=== PATIENT | male | born 1945 | race Caucasian/White ===

== ENCOUNTER → 2017-11-24 | Outpatient (CLI) | payer MEDICARE, OTHER ==
[2014-12-22 15:12] VITALS: BMI 26.3
[~2017-11-24] MED LIST: ARTO15 OD; ASPIRIN; CARB-127 PO; CEP500 PO; CHOL200022 PO; CLON-298 PO; CYAN100T25 PO; DOCU-416 PO; FLONASE; FLUO40CA76 PO; FLUT9.9S; FOLI0.8T29 PO; GABA-1 PO; GABA-490 PO; IOPAMIDOL 76% 100 ML INFUS BTL 100 ML ONE; KLONOPIN; LAM100 PO; LITC450 PO; LOXA5CAP PO; LUMIGAN EYE DROPS; METH5TAB85 PO; MULT-1379 PO; NS 0.9% 150 ML BAG 150 ML ONE; OMEG500C5 PO; OMEG500C7 PO; PYRI100T57 PO; QUET100T29 PO; QUET25TA30 PO; QUET50TA21 PO; RAME8TAB43 PO; TRAZ-133 PO; VITA-200 PO
--- NOTE | 2017-11-24 15:45 | RADIOLOGY IMAGING REPORT ---
FACILITY: [facility] [place] PATIENT NAME: Nicola Kumar : 1945 MR: [id number] V: [id number] EXAM DATE: ORDERING PHYSICIAN: RACHEL DIANA TECHNOLOGIST: Location: [facility] [place] Patient: Nicola Kumar : 1945 Visit/Account:[id number] Date of Sevice: 11/24/2017 ABDOMEN/PELVIS WITH CONTRAST HISTORY: Abnormal LFTs TECHNIQUE: Following administration of IV contrast contiguous axial images acquired through the abdom en/pelvis. Coronal and sagittal reformatting also performed. Dose Lowering Technique One of the following dose optimization techniques was utilized in the performance of this exam: Autom ated exposure control; adjustment of the mA and/or kV according to the patient's size; or use of an i terative reconstruction technique. Specific details can be referenced in the facility's radiology C T exam operational policy. CONTRAST: 100 mL Isovue-370 COMPARISON: None. FINDINGS: Visualized lung bases: Calcified granuloma in the left lower lobe Hepatobiliary: There are numerous irregular hypoattenuating masses throughout the liver ranging in s ize from several millimeters to 6 cm consistent with hepatic metastases. Spleen: There are calcified granulomas within the spleen and several ill-defined geographic areas of decreased attenuation worrisome for additional metastases Adrenals: There Is a 2.6 cm hypoattenuating left adrenal mass Pancreas: There is a large hypoattenuating irregular mass involving the distal half of the body and the tail of the pancreas measuring approximately 7.7 cm in length 4.2 cm in width and 4.5 cm in heigh t. There Appears to been an exophytic component of this mass in direct contact with the superior ant erior aspect of the left kidney . The distal tail portion of the mass appears to be at least partia lly cystic Kidneys ureters or bladder: There are numerous small hypoattenuating lesions seen throughout the kidn eys which could represent cysts. There is no evidence of hydronephrosis. There is a 5 mm calcificat ion in the midpole the right kidney Genitalia: The prostate gland appears extremely heterogeneous. There suggestion of small bilateral hydroceles GI: Negative. Vessels/spaces/nodes: There is an ill-defined left periaortic mass measuring 2 x 1.8 x 2.7 cm likely a lymph node. There is 1.8 x 1.4 x 1.9 cm portacaval lymph node in addition to several other smalle r periportal lymph nodes Bones/soft tissues: There are moderate spondylotic changes lumbar spine. There is a sclerotic densi ty in the right femoral head consistent with a bone island was present on a prior AP view of the pelv is from December 07, 2014 Additional findings: None pertinent. IMPRESSION: Large heterogeneous mass involving the distal body and tail of the pancreas as detailed above extreme ly concerning for pancreatic malignancy. Numerous hepatic metastases 2.6 cm hypoattenuating left adrenal mass Probable splenic metastases Numerous small hypoattenuating lesions throughout the kidneys which could represent cysts although ar e too small to characterize The prostate gland appears extremely heterogeneous and there is suggestion of small bilateral hydroce les Ill-defined periaortic mass measuring 2 x 1.8 x 2.7 cm likely metastatic lymph node 1.8 x 1.4 x 1.9 cm portacaval lymph node also likely metastatic.. Results were called to RACHEL DIANA's nurse Syl at 11/24/2017 3:41 PM. Report Dictated By: Briana Hernandez MD at 11/24/2017 3:25 PM Report E-Signed By: Briana Hernandez MD at 11/24/2017 3:41 PM WSN:[email or web address]
== END ==
LOC: CT 14:30
PROVIDERS: ATTEND Physician Assistant
DX: K86.9 Disease of pancreas, unspecified (principal); C78.89 Secondary malignant neoplasm of other digestive organs; N28.1 Cyst of kidney, acquired; I89.8 Other specified noninfective disorders of lymphatic vessels and lymph nodes
CPT/HCPCS: 74177; Q9967

== ENCOUNTER 2017-12-29 01:28 | Day surgery (SDC) | payer MEDICARE, OTHER ==
[2014-12-22 15:12] VITALS: Ht 170.2 cm; Wt 72.6 kg
[~2017-12-29] VITALS: Ht 170.2 cm; Wt 72.6 kg
[~2017-12-29 01:28] MED LIST changes: -IOPAMIDOL 76% 100 ML INFUS BTL 100 ML ONE; +LORA-630 PO; +MEMA10TA18 PO; -NS 0.9% 150 ML BAG 150 ML ONE; +ZOLP-350 PO
[2017-12-29] MEDS ORDERED: ceFAZolin(*) 2GM/D5W 50ML 50 ML IVPB ONE (06:00)
[2017-12-29 06:09] VITALS: BP 119/71
[2017-12-29] MEDS ORDERED: NORMOSOL R SOLN(*) 1000 ML BAG 1,000 ML IV PRN (06:30)
[2017-12-29] MEDS ORDERED: LIDOCAINE/SOD BICARB 8.4% SYR ID ONE (06:30)
[2017-12-29] MEDS ORDERED: FAMOTIDINE 20 MG TAB PO ONE (06:30)
[2017-12-29] MEDS ORDERED: MIDAZOLAM 2 MG/2 ML VIAL IVP PRN (06:30)
[2017-12-29] MEDS ORDERED: ROPIVACAINE 0.5% 20 ML VIAL ONE (06:43)
[2017-12-29] MEDS ORDERED: NS(*) 0.9% 10 ML VIAL 10 ML ONE (06:43)
[2017-12-29] MEDS ORDERED: HEPARIN SOD LCK FLSH 100 UN/ML ONE ×2 (06:55→07:04)
[2017-12-29] MEDS ORDERED: PROPOFOL EMUL(*) 10MG/ML 20 ML 20 ML ONE (07:16)
[2017-12-29] MEDS ORDERED: fentaNYL CITR 100 MCG/2 ML AMP ONE (07:16)
[2017-12-29] MEDS ORDERED: LIDOCAINE MPF 1% 5 ML VIAL ONE (07:16)
[2017-12-29] MEDS ORDERED: ONDANSETRON 4 MG/2 ML VIAL ONE (07:27)
[2017-12-29] MEDS ORDERED: DEXAMETHASONE SOD 4 MG/ML VIAL ONE (07:27)
[2017-12-29] MEDS ORDERED: ePHEDrine 25 MG/5 ML DISP.SYR IVP ONE (07:28)
[2017-12-29] MEDS ORDERED: DOCU-416 PO (08:17)
[2017-12-29] MEDS ORDERED: HYDR-385 PO (08:17)
--- NOTE | 2017-12-29 08:35 | Short(Outpt) Discharge Summary ---
Discharge Summary Reason for Hosp/Final Diag: (1) Pancreatic cancer Status: Chronic Hospital Course & Plan: Right IJ Power Port placement completed without problems. Departure Discharge to: Home, Self Care Discharge Instructions Home Meds Active Scripts Docusate Sodium (COLACE) 100 Mg Capsule, 1 CAP PO BID, #30 CAP 0 Refills TAKE WITH A FULL GLASS OF WATER Prov:RADHA GIFFORD MD 12/29/17 Hydrocodone Bit/Acetaminophen (HYDROCODON-ACETAMINOPHEN 5-325) 1 Each Tablet, 1- 2 TAB PO Q4H Y for PAIN, #20 TAB 0 Refills Prov:RADHA GIFFORD MD 12/29/17 Reported Medications Zolpidem Tartrate (AMBIEN) 10 Mg Tablet, 1 TAB PO QHS, TAB 12/28/17 Lorazepam (LORAZEPAM) 0.5 Mg Tablet, 1 MG PO BID 12/07/17 Memantine Hcl 10 Mg Tab (NAMENDA 10 MG TAB) 10 Mg Tablet, 10 MG PO BID, TAB 12/07/17 Hypromellose (NATURAL BALANCE TEARS) 15 Ml Drop, 15 ML OD Y for DRY EYES, DROP 02/10/15 Multivits,Th W-Fe,Other Min (THERA-M) 1 Each Tablet, 1 EACH PO DAILY 02/10/15 Gabapentin (NEURONTIN) 300 Mg Capsule, 300 MG PO QHS, CAPSULE 02/10/15 Carbidopa/Levodopa (CARBIDOPA-LEVO 25-100 MG ODT) 1 Each Tab.rapdis, 2 EACH PO unknown TID @ 0730 1130 1630 12/07/14 Lamotrigine (Lamictal) 100 Mg Tab, 300 MG PO QHS, 0 Refills 02/23/09 Discontinued Reported Medications Gabapentin (NEURONTIN) 300 Mg Capsule, 300 MG PO EVERY EVENING, CAPSULE 02/10/15 Diet: Regular Activity: As Tolerated Special Instructions: You may shower starting on 12/31/17, but don't immerse the incisions for 2 weeks. Please let me, or the cancer center, know if the stitch in your neck doesn't fall out in the next 2 weeks so we can remove it for you. You may take 1 or 2 tablets of the hydrocodone/apap up to every 4 hour if you need it for pain control. Avoid NSAIDS (non-steroidal anti-inflammatory drugs: ibuprofen, motrin, aleve, advil, naproxen, naprosyn, etc; tylenol/acetaminophen is OK) for 2 days after surgery. Take the stool softener (colace), 1 capsule twice each day until you're having regular bowel movements and you are no longer taking the pain medication; of course, stop it if you develop diarrhea. Problem Qualifiers (1) Pancreatic cancer: Pancreatic malignancy location: tail of pancreas Qualified Codes: C25.2 - Malignant neoplasm of tail of pancreas RADHA GIFFORD MD December 29, 2017 08:35
[2017-12-29 08:55] VITALS: BP 102/68
[2017-12-29 09:29] VITALS: BP 106/49
[2017-12-29] MEDS ORDERED: TRAM-420 PO (09:37)
[2017-12-29 09:58] VITALS: BP 106/69
[2017-12-29 10:00] VITALS: BP 92/59
--- NOTE | 2017-12-29 10:14 | RADIOLOGY IMAGING REPORT ---
FACILITY: [facility] PATIENT NAME: Nicola Kumar : 1945 MR: [id number] V: [id number] EXAM DATE: ORDERING PHYSICIAN: RADHA GIFFORD TECHNOLOGIST: Location: [facility] Patient: Nicola Kumar : 1945 Visit/Account:[id number] Date of Sevice: 12/29/2017 Exam type: CHEST SINGLE AP History: Right IJ Power Port placement Comparison: December 07, 2014 Findings: The lungs are free of acute effusions, infiltrates or edema. Cardiac silhouette is normal in size. The trachea is midline. The implanted right IJ port distal tip projects over the superior vena cava. No pneumothorax is seen.. IMPRESSION: Right IJ port appears in good position with the distal tip projecting over the superior vena cava. N o evidence of pneumothorax Report Dictated By: Briana Hernandez MD at 12/29/2017 9:40 AM Report E-Signed By: Briana Hernandez MD at 12/29/2017 10:09 AM WSN:[email or web address]
--- NOTE | 2017-12-29 11:36 | RADIOLOGY IMAGING REPORT ---
FACILITY: [facility] - [place] [place] PATIENT NAME: Nicola Kumar : 1945 MR: [id number] V: [id number] EXAM DATE: ORDERING PHYSICIAN: RADHA GIFFORD TECHNOLOGIST: Location: [facility] [place] Patient: Nicola Kumar : 1945 Visit/Account:[id number] Date of Sevice: 12/29/2017 Exam type: C-ARM FLUORO PORT/CATH History: PORT PLACEMENT Comparison: None. Findings: Three portable intraoperative C-arm spot views of the upper chest demonstrate placement of a implante d right IJ port with the distal tip resting over the superior vena cava. The total fluoroscopy time was 18.6 seconds. The cumulative continuous possibly dose was 0.27291 mGray per meter squared IMPRESSION: 1. As above Report Dictated By: Briana Hernandez MD at 12/29/2017 11:17 AM Report E-Signed By: Briana Hernandez MD at 12/29/2017 11:31 AM WSN:[email or web address]
--- NOTE | 2018-01-04 19:42 | Post Operative Progress Note ---
Post Operative Progress Note Date: January 04, 2018 Time: 19:37 Surgeon: Kadi Dictation number: [id number] Anesthesia: LMA by Dr. Saenz Pre-Op Diagnosis: Pancreatic Cancer Post-Op Diagnosis: HERMILO Findings: None Procedure(s): Right IJ Power Port placement Specimen Removed:(May be N/A): None Complications: None Fluids: See anesthesia record Estimated Blood Loss: Minimal Date OP Note Dictated: January 04, 2018 Time OP Note Dictated: 19:38 RADHA GIFFORD MD January 04, 2018 19:42
--- NOTE | 2018-01-04 21:46 | OPERATIVE REPORT 1 ---
EVENT DATE: December 29, 2017 SURGEON: John Wallis MD ANESTHESIOLOGIST: Tommy Saenz MD ANESTHESIA: LMA. PREOPERATIVE DIAGNOSIS Pancreatic cancer. POSTOPERATIVE DIAGNOSIS Pancreatic cancer. PROCEDURE PERFORMED Right internal jugular PowerPort placement. COMPLICATIONS None. CONDITION Stable. BLOOD LOSS Minimal. INDICATIONS This is a 72-year-old gentleman who, unfortunately, has been recently found to have stage IV pancreatic cancer. He is planning on starting chemotherapy, and I have been asked to place a PowerPort to facilitate this. DESCRIPTION OF PROCEDURE The patient was brought to the operating room and placed supine on the operating table. LMA anesthesia was administered, and his right neck, chest, and shoulder were prepped and draped in a sterile fashion. A timeout was completed. I used the ultrasound to identify the right internal jugular vein. With the patient in Trendelenburg, I used the access needle, and under ultrasound guidance, I accessed the vein in one attempt. I threaded the wire through the needle and removed the needle. I then used the C-arm to confirm that the wire was in the SVC. I then anesthetized the skin in the neck as well as in the right infraclavicular skin. I made a transverse incision in the right infraclavicular skin and dissected through the dermis and subcutaneous fat. I then created a pocket caudad to the incision and made sure this was hemostatic. I then made a stab incision in the neck where the wire went in and then used the tunneler and dragged the catheter in through the subcutaneous tissue into the neck from the pocket in this infraclavicular area. Then with the patient in Trendelenburg, I threaded the dilator and sheath over the wire, used the C-arm to confirm that, again, this was in the SVC. I then removed the dilator and wire, threaded the catheter through the sheath, and removed the sheath. I then pulled the catheter back so the tip was in the SVC just over the right atrium, using the C-arm again to confirm positioning. I then cut the catheter to length, cut the port on the catheter, and locked it into place with a locking cuff. I then sutured the port to the underlying muscle fascia with 3- 0 nylon at the corners. I then took some more C-arm images to confirm good positioning, and there were no kinks or twists in the catheter. I then aspirated blood through the port and catheter and then flushed it with 10 mL of preservative-free, infusible normal saline. It aspirated blood with no problems , and I was able to flush it with no problems. I then flushed it with 5 mL of 100 units/mL of heparinized saline for a total of 500 units of heparin. Again, it flushed with no problems. I then closed the skin on the pocket with interrupted 3-0 Vicryl deep dermal sutures and 4-0 Monocryl subcuticular sutures. I then placed a single 3-0 chromic suture in the stab incision in the neck. I then cleaned and dried the skin, and Steri-Strips were applied. He was awakened and LMA removed. He was transported to the recovery room in stable condition having tolerated the procedure without any apparent problems. MIKAL
== END 2017-12-29 08:55 | disposition home or self-care (01) ==
LOC: OR 01:28
PROVIDERS: ATTEND Surgery
DX: C25.9 Malignant neoplasm of pancreas, unspecified (principal)
CPT/HCPCS: 36561; 71045; 77001; A9270; C1788; J1100; J1642; J2001; J2405; J2704; J2795; J3010; J0690

== ENCOUNTER 2018-01-18 10:30 | Outpatient (RCR) | payer MEDICARE, OTHER ==
[2014-12-22 15:12] VITALS: BMI 26.3
--- NOTE | 2018-01-03 13:27 | PT INITIAL EVALUATION ---
MEDICAL DIAGNOSIS: Pancreatic Cancer TREATMENT DIAGNOSIS: Pancreatic Cancer, Parkinsons Disease DATE OF ONSET: 01/03/18 SUBJECTIVE: Nicola is a 72 year-old male presenting to oncology rehabilitation following the recent diagnosis and initiation of treatment for pancreatic cancer. Pt is to start today on a medical oncology regime consisting of Gemcitabine and Abraxane, received weekly for 3 weeks with one week off between , for palliative treatment slowing disease progression and decreasing pain. Pt currently is quite active walking 2-3 miles 4x/week and also participating in recreational lifting at the [facility]. Pt has a history of Parkinson's Disease and has participated in a "[employer]" program for individuals with Parkinson's up until about a month ago when he rolled his ankle (which is now resolved). Pt reports only mild abdominal pain and decreased appetite developing over the last month. Pt also reports occasional shortness of breath with walking which has increased over the past month. Pt's son and are present for education and evaluation from PT. Dietitian is to follow up with pt following PT evaluation. REHAB PROBLEM LIST: Increased Pain Decreased Strength Decreased Function Decreased ADL's PREVIOUS MEDICAL HISTORY: See EMR OCCUPATION: Retired OBJECTIVE: Posture: Pt has B rounded shoulders with increased thoracic kyphosis and forward head. ROM: UE ROM: WFL without pain in all directions B. Strength: LE MMT: Hip: All motions 5/5. Knee: Flexion: B 4+/5, Ext: L 4+/5, R 5/ 5. Ankle: DF: B 5/5, PF: L 4+/5, R 5/5. Sensation: Pt reports no neuropathy at this time. Mobility: ECOG Performance Status: Grade 0 Other Objective Findings: FACT-G: PWB: , SWB: , EWB: , FWB: , Total: 88/108. ASSESSMENT: Nicola presents with signs and symptoms consistent with diagnosis of pancreatic cancer. Physical therapy is indicated for this patient to maintain functional mobility, treat the above listed impairments, and diminish physical side effects of disease progression with both his oncological diagnosis as well as his history with Parkinson's disease. Short Term Goals In 3 weeks pt will be able to independently perform LSVT-BIG exercises at home for management of Parkinson's Disease progression with ongoing oncological intervention for maintenance of functional status. In 3 MO pt will maintain ECOG performance status of 0 for maintenance of functional mobility with ADL's. In 3 MO pt will maintain FACT-G score of 80/108 or better for continued status of physical and functional well-being. In 6 MO pt will maintain FACT-G score of 75/108 or better for continued status of physical and functional well-being. In 6 MO pt will maintain strength as tested by MMT of 4+/5 or greater in all major muscle groups for functional ability to perform ADL's. Patient's Goals Maintain function. PLAN: Patient to be seen for Manual Therapy/STM/MET Strengthening/condition Ice/Heat Range of Motion Spinal Stabilization Ultrasound Stretching Iontophoresis Neuromuscular Re-ed Closed Chain Program Electrical Stim Posture/Body mechanics Gait Trg/Balance Trg Biofeedback Home Exercise Program Mech./Manual Traction Therapeutic Activities Pelvic Floor 1x/Week for 6 MO If you have any questions, comments, or concerns about this report or plan, please contact me at . Thank you, Jacquelyn Hobson, PT, DPT, CLT MTDD
[~2018-01-18 10:30] MED LIST changes: +HYDR-385 PO; +TRAM-420 PO
--- NOTE | 2018-01-25 09:29 | PT PLAN OF CARE ---
Physician: Josr Segundo MD Patient is being seen: 1x/Week Therapist: Jacquelyn Hobson, PT, DPT, CLT Medical Diagnosis: Pancreatic Cancer Treatment Diagnosis: Pancreatic Cancer, Parkinson's Disease Date of Onset: 01/03/18 Date of Initial Evaluation: 01/03/18 Date patient was last seen: 01/18/18 Number of treatments: 3 Number of cancellations/No shows: 0 INTERVENTIONS: Manual Therapy/STM/MET Strengthening/condition Ice/Heat Range of Motion Spinal Stabilization Ultrasound Stretching Iontophoresis Neuromuscular Re-ed Closed Chain Program Electrical Stim Posture/Body mechanics Gait Trg/Balance Trg Biofeedback Home Exercise Program Mech./Manual Traction Therapeutic Activities Pelvic Floor GOALS: In 3 weeks pt will be able to independently perform LSVT-BIG exercises at home for management of Parkinson's Disease progression with ongoing oncological intervention for maintenance of functional status. In 3 MO pt will maintain ECOG performance status of 0 for maintenance of functional mobility with ADL's. In 3 MO pt will maintain FACT-G score of 80/108 or better for continued status of physical and functional well-being. In 6 MO pt will maintain FACT-G score of 75/108 or better for continued status of physical and functional well-being. In 6 MO pt will maintain strength as tested by MMT of 4+/5 or greater in all major muscle groups for functional ability to perform ADL's. PATIENT'S GOAL: Maintain function. Status of Patient's Goals: Discontinued Patient Compliance: Fair Prognosis: Fair Reasons for discharge from therapy: Nicola is to discharge from physical therapy at this time secondary to recent hospital admission with multiple DVT's and PE's. At the time of discharge pt showed improvement with BIG exercises stability and balance. However, with ADL's pt and family noticed decreased energy and activity as well as increased exacerbation of Parkinson's symptoms including micro movements. Pt was inconsistent with performance of HEP, but was hopeful to improve. Upon discharge from the hospital pt is to resume PT services in a home health setting transitioning to an outpatient setting for management of Parkinson's Disease as well as maintenance of strength and function. Posture: Pt has B rounded shoulders with increased thoracic kyphosis and forward head. ROM: UE ROM: WFL without pain in all directions B. Strength: LE MMT: Hip: All motions 5/5. Knee: Flexion: B 4+/5, Ext: L 4+/5, R 5/ 5. Ankle: DF: B 5/5, PF: L 4+/5, R 5/5. Sensation: Pt reports no neuropathy at this time. Mobility: ECOG Performance Status: Grade 0 Other Objective Findings: FACT-G: PWB: , SWB: , EWB: , FWB: , Total: 88/108. If yo have any questions or concerns, please feel free to contact me at . Thank you, Jacquelyn Hobson, PT, DPT, CLT MTDD
== END 2018-01-18 18:00 | disposition home or self-care (01) ==
LOC: PT 10:30
PROVIDERS: ATTEND Internal Medicine
DX: C25.9 Malignant neoplasm of pancreas, unspecified (principal); G20 Parkinson's disease; R06.02 Shortness of breath; R10.9 Unspecified abdominal pain
CPT/HCPCS: 97162

== ENCOUNTER 2018-01-23 16:31 | Inpatient (IN) | payer MEDICARE, OTHER ==
[~2018-01-23] VITALS: Ht 172.7 cm; Wt 72.6 kg
[~2018-01-23 16:31] MED LIST changes: -CARB-71 PO; -GABA-549 PO
--- NOTE | 2018-01-23 16:35 | ER Report ---
History and Physical Time Seen By MD: 16:39 HPI/ROS CHIEF COMPLAINT: Shortness of breath HISTORY OF PRESENT ILLNESS: This is a 72-year-old male who presents to the emergency department for shortness of breath. Patient was sent from the radiology department positive for a DVT. Patient also indicated having shortness of breath subsequently sent to the emergency department for further evaluation. Patient states he's had bilateral lower extremity discomforts for the last roughly 6 weeks which ultimately with the patient in for the bilateral lower extremity ultrasound. Patient states that over the last month he's had some increased shortness breath as well did a home oxygen study which was discovered that his O2 sats at night were low. But has not been started on oxygen. Patient did have increased shortness of breath today was placed on oxygen and is feeling better. Patient does have a history of pancreatic cancer with metastasis to the liver. Patient denies rashes, headaches, visual changes REVIEW OF SYSTEMS: Constitutional: No fever, no chills. Eyes: No discharge. ENT: No sore throat. Cardiovascular: No chest pain, no palpitations. Respiratory: As above. Gastrointestinal: No abdominal pain, no vomiting. Genitourinary: No hematuria. Musculoskeletal: As above. Skin: No rashes. Neurological: No headache. Allergies: Coded Allergies: No Known Drug Allergies (Verified , 01/23/18) Home Meds Reported Medications Zolpidem Tartrate (AMBIEN) 10 Mg Tablet, 1 TAB PO QHS, TAB 12/28/17 Lorazepam (LORAZEPAM) 0.5 Mg Tablet, 1 MG PO BID 12/07/17 Memantine Hcl 10 Mg Tab (NAMENDA 10 MG TAB) 10 Mg Tablet, 10 MG PO BID, TAB 12/07/17 Hypromellose (NATURAL BALANCE TEARS) 15 Ml Drop, 15 ML OD Y for DRY EYES, DROP 02/10/15 Multivits,Th W-Fe,Other Min (THERA-M) 1 Each Tablet, 1 EACH PO DAILY 02/10/15 Gabapentin (NEURONTIN) 300 Mg Capsule, 300 MG PO QHS, CAPSULE 02/10/15 Carbidopa/Levodopa (CARBIDOPA-LEVO 25-100 MG ODT) 1 Each Tab.rapdis, 2 EACH PO unknown TID @ 0730 1130 1630 12/07/14 Lamotrigine (Lamictal) 100 Mg Tab, 300 MG PO QHS, 0 Refills 7/6/09 Discontinued Scripts Tramadol Hcl (TRAMADOL HCL) 50 Mg Tablet, 1-2 TAB PO Q4H Y for PAIN, #20 TAB 0 Refills Prov:RADHA GIFFORD MD 12/29/17 Docusate Sodium (COLACE) 100 Mg Capsule, 1 CAP PO BID, #30 CAP 0 Refills TAKE WITH A FULL GLASS OF WATER Prov:RADHA GIFFORD MD 12/29/17 Past Medical/Surgical History Patient has a past medical and surgical history of Parkinson's, constipation, liver disease, pancreatic cancer metastasized to liver, lower back pain, wears glasses, bleeds easily, knee surgery, bipolar, depression, anxiety, spinal surgery, disc repair, nasal septal surgery, right eye surgery secondary to torn retina, skin cancer removed from the cheeks. Reviewed Nurses Notes: Yes Hx Smoking: No Smoking Status: Never Smoker Exposure to Second Hand Smoke?: No Hx Substance Use Disorder: No Hx Alcohol Use: Yes Constitutional Vital Sign - Last 24 Hours 01/23/18 01/23/18 16:38 16:49 Temp 97.6 Pulse 79 Resp 20 B/P (MAP) 133/83 Pulse Ox 98 O2 Delivery Nasal Cannula O2 Flow Rate 3.0 Physical Exam General Appearance: The patient is alert, has no immediate need for airway protection and no signs of toxicity. Eyes: Pupils equal and round no pallor or injection. Scleral icterus. ENT, Mouth: Mucous membranes are Dry. Respiratory: There are no retractions, lungs are clear to auscultation. Cardiovascular: Regular rate and rhythm, no murmurs, clicks or rubs. Gastrointestinal: Abdomen is soft and non tender, no masses, bowel sounds normal. Neurological: Alert and oriented 4. Moving all extremities. Follows all commands. No focal neuro deficits. Skin: Warm and dry, no rashes. Musculoskeletal: Neck is supple non tender. Extremities are nontender, nonswollen and have full range of motion. DIFFERENTIAL DIAGNOSIS: After history and physical exam differential diagnosis was considered for shortness of breath including but not limited to pulmonary infectious process, COPD, asthma, pulmonary embolus and congestive heart failure. Medical Decision Making Data Points Result Diagram: 01/23/18 1706 01/23/18 1706 Laboratory Hematology Test 01/23/18 17:06 Red Blood Count 3.62 M/uL (4.00-5.60) Mean Corpuscular Volume 92.1 fL (80.0-96.0) Mean Corpuscular Hemoglobin 32.4 pg (26.0-33.0) Mean Corpuscular Hemoglobin Concent 35.2 g/dL (32.0-36.0) Red Cell Distribution Width 16.9 % (11.5-14.5) Mean Platelet Volume 8.4 fL (7.2-11.1) Neutrophils (%) (Auto) % (39.4-72.5) Lymphocytes (%) (Auto) % (17.6-49.6) Monocytes (%) (Auto) % (4.1-12.4) Eosinophils (%) (Auto) % (0.4-6.7) Basophils (%) (Auto) % (0.3-1.4) Nucleated RBC Relative Count (auto) /100WBC Neutrophils # (Auto) K/uL (2.0-7.4) Lymphocytes # (Auto) K/uL (1.3-3.6) Monocytes # (Auto) K/uL (0.3-1.0) Eosinophils # (Auto) K/uL (0.0-0.5) Basophils # (Auto) K/uL (0.0-0.1) Nucleated RBC Absolute Count (auto) K/uL Neutrophils % (Manual) 50 % (39.4-72.5) Band Neutrophils % 8 % Lymphocytes % (Manual) 27 % (17.6-49.6) Monocytes % (Manual) 9 % (4.1-12.4) Eosinophils % (Manual) 1 % (0.4-6.7) Basophils % (Manual) 1 % (0.3-1.4) Metamyelocytes % 3 % Myelocytes % 1 % Nucleated Red Blood Cells 1 Peripheral Blood Smear Yes Y/N Sodium Level 136 mmol/L (137-145) Potassium Level 4.1 mmol/L (3.5-5.0) Chloride Level 104 mmol/L (98-107) Carbon Dioxide Level 20 mmol/L (22-30) Blood Urea Nitrogen 32 mg/dl (9-21) Creatinine 1.10 mg/dl (0.66-1.25) Glomerular Filtration Rate Calc > 60.0 Random Glucose 86 mg/dl (75-110) Calcium Level 10.3 mg/dl (8.4-10.2) Total Bilirubin 6.5 mg/dl (0.2-1.3) Aspartate Amino Transf (AST/SGOT) 71 U/L (0-35) Alanine Aminotransferase (ALT/SGPT) 22 U/L (0-56) Alkaline Phosphatase 572 U/L (0-126) Troponin I 0.027 ng/ml B-Type Natriuretic Peptide 268 pg/ml (0-100) Total Protein 6.3 gm/dl (6.3-8.2) Albumin 3.0 g/dl (3.5-5.0) Chemistry Test 01/23/18 17:06 White Blood Count 7.2 k/uL (4.5-11.0) Red Blood Count 3.62 M/uL (4.00-5.60) Hemoglobin 11.7 g/dL (14.0-18.0) Hematocrit 33.3 % (42.0-52.0) Mean Corpuscular Volume 92.1 fL (80.0-96.0) Mean Corpuscular Hemoglobin 32.4 pg (26.0-33.0) Mean Corpuscular Hemoglobin Concent 35.2 g/dL (32.0-36.0) Red Cell Distribution Width 16.9 % (11.5-14.5) Platelet Count 112 K/uL (150-450) Mean Platelet Volume 8.4 fL (7.2-11.1) Neutrophils (%) (Auto) % (39.4-72.5) Lymphocytes (%) (Auto) % (17.6-49.6) Monocytes (%) (Auto) % (4.1-12.4) Eosinophils (%) (Auto) % (0.4-6.7) Basophils (%) (Auto) % (0.3-1.4) Nucleated RBC Relative Count (auto) /100WBC Neutrophils # (Auto) K/uL (2.0-7.4) Lymphocytes # (Auto) K/uL (1.3-3.6) Monocytes # (Auto) K/uL (0.3-1.0) Eosinophils # (Auto) K/uL (0.0-0.5) Basophils # (Auto) K/uL (0.0-0.1) Nucleated RBC Absolute Count (auto) K/uL Neutrophils % (Manual) 50 % (39.4-72.5) Band Neutrophils % 8 % Lymphocytes % (Manual) 27 % (17.6-49.6) Monocytes % (Manual) 9 % (4.1-12.4) Eosinophils % (Manual) 1 % (0.4-6.7) Basophils % (Manual) 1 % (0.3-1.4) Metamyelocytes % 3 % Myelocytes % 1 % Nucleated Red Blood Cells 1 Peripheral Blood Smear Yes Y/N Glomerular Filtration Rate Calc > 60.0 Calcium Level 10.3 mg/dl (8.4-10.2) Total Bilirubin 6.5 mg/dl (0.2-1.3) Aspartate Amino Transf (AST/SGOT) 71 U/L (0-35) Alanine Aminotransferase (ALT/SGPT) 22 U/L (0-56) Alkaline Phosphatase 572 U/L (0-126) Troponin I 0.027 ng/ml B-Type Natriuretic Peptide 268 pg/ml (0-100) Total Protein 6.3 gm/dl (6.3-8.2) Albumin 3.0 g/dl (3.5-5.0) EKG/Imaging EKG Interpretation 12 lead EKG: Tylenol EKG 1649. Rhythm: Normal sinus rhythm, 77 bpm. [place]: normal QRS: normal ST segments: T-wave inversion in V1 and V2 V3. There are changes from the 12/07/2014 EKG, no T wave inversion. Imaging Exam type: VENOUS DOPP LOWER BILAT EXTREM History: Stage IV pancreatic cancer with metastases undergoing chemotherapy ankle swelling Comparison: None. Findings: There is thrombus in the left external iliac vein, left common femoral vein, left superficial femoral vein left and popliteal vein. The IVC appeared to be patent. The left posterior tibial vein peroneal vein and anterior tibial vein appeared patent and compressible. The right common femoral vein greater saphenous vein superficial femoral vein and proximal right popliteal vein appear compressible. The distal right popliteal vein with noncompressible containing thrombus. Right posterior tibial vein peroneal vein were noncompressible. The right anterior tibial vein was compressible IMPRESSION: 1. Extensive DVT is identified in the left external iliac vein through the left popliteal vein from the distal right popliteal vein into the right posterior tibial and peroneal veins. Yesenia Santiago was notified of these findings by telephone by the technologist at the time of the examination. Report Dictated By: Briana Hernandez MD at 01/23/2018 4:42 PM Report E-Signed By: Briana Hernandez MD at 01/23/2018 4:48 PM WSN:[email or web address] Location: [facility] [place] Patient: Nicola Kumar : 1945 Visit/Account:[id number] Date of Sevice: 01/23/2018 EXAMINATION: CT CHEST PULMONARY ANGIOGRAM COMPARISON: Chest x-ray 12/29/2017. CT abdomen and pelvis 11/24/2017. HISTORY: Dx today with bilat DVTs, short of breath, eval for PE PROCEDURE: Pulmonary arterial phase imaging of the chest with 75 mL intravenous Isovue 370. Reconstruction of the source data set includes multiplanar 2D in the sagittal and coronal planes, and 3D reconstructed coronal slab MIP series. One of the following dose optimization techniques was utilized in the performance of this exam: Automated exposure control; adjustment of the mA and/ or kV according to the patient's size; or use of an iterative reconstruction technique. Specific details can be referenced in the facility's radiology CT exam operational policy. FINDINGS: Pulmonary vasculature: There is good contrast opacification of the pulmonary arterial system. Small amount of nonocclusive distal segmental and subsegmental pulmonary emboli in the right middle and right lower lobes. Left lower lobe posterior basal segmental and subsegmental occlusive embolus. Minimal nonocclusive distal segmental embolus in the left upper lobe. Main pulmonary artery size is within normal limits. Cardiac and mediastinum: Cardiac chambers are unremarkable; RV: LV ratio is within normal limits. Infusion port. No pericardial effusion. No thoracic aortic aneurysm. Lungs and pleura: No evidence of pulmonary infarct. No consolidation or nodule. No pneumothorax, edema, or effusion. Airways: Negative. Upper abdomen: Hepatic metastatic disease is incompletely evaluated due to the phase of enhancement. The known pancreatic tail mass is not included on this study. Osseous structures: Negative. IMPRESSION: 1. Small amount of bilateral pulmonary emboli. No pulmonary infarct are evidence of acute right ventricular strain. 2. Hepatic metastatic disease. Results were discussed with Janie Reno at 01/23/2018 6:43 PM. Report Dictated By: Olivier Cummings MD at 01/23/2018 6:34 PM Report E-Signed By: Olivier Cummings MD at 01/23/2018 6:43 PM WSN:[id number] ED Course/Re-evaluation Clinical Indication for ER IV: Hydration, IV Access ED Course The patient was a minute to a room. A history physical were obtained. Differential diagnoses were considered. The patient's port was accessed. A CBC, CMP, Showing alk phosphatase 572, negative troponin, BNP 268 otherwise CBC and chemistry unremarkable.The venous Doppler showing extensive DVT in the left external iliac vein through the left popliteal vein from the distal right popliteal vein into the right posterior tibial and peroneal veins. CT angiography of the chest showing small amount of bilateral pulmonary emboli no pulmonary infarct. I did review these results with the patient and the family at the bedside and given the extensive clot burden in the lower extremities as well as the pulmonary emboli I did feel that it would be the patient's best interest to consider an admission to the hospital. Patient was agreeable to this. I did speak with Dr. Luna who accepted the patient in the Hospital services. Patient will be admitted to the medical unit and anticoagulated. The patient had no questions or concerns at the time of admission. 01/23/2018 6:50:06 pm I did a room air trial, the patient's oxygen did dip from the mid to upper 90s on 3 L nasal cannula to 85% on room air. 01/23/2018 7:08:04 pm I did speak with Dr. Luna regarding the patient's case, he has accepted the patient into the hospitalist services patient will be admitted for pulmonary emboli, DVT, shortness of breath, and pancreatic cancer with metastatic disease to the liver. Decision to Disposition Date: Jan 23, 2018 Decision to Disposition Time: 19:08 Depart Departure Latest Vital Signs Vital Signs Date Time Temp Pulse Resp B/P (MAP) Pulse Ox O2 Delivery O2 Flow Rate FiO2 01/23/18 16:49 3.0 01/23/18 16:38 97.6 79 20 133/83 98 Nasal Cannula Impression: Primary Impression: DVT (deep venous thrombosis) Additional Impressions: PE (pulmonary thromboembolism) Hypoxia Pancreatic cancer metastasized to liver Condition: Improved Disposition: Admitted from ER Problem Qualifiers Primary Impression: DVT (deep venous thrombosis) DVT location: lower extremity Affected thrombotic vein of extremity: femoral Chronicity: acute Laterality: bilateral Qualified Codes: I82.413 - Acute embolism and thrombosis of femoral vein, bilateral ANGEL BARNEYP- Jan 23, 2018 16:35
[2018-01-23] MEDS ORDERED: NS(*) 0.9% 500 ML BAG 500 ML IV ONE (16:40)
--- NOTE | 2018-01-23 16:55 | EKG ---
FACILITY: [facility] PATIENT NAME: CRISTOFER HAINES : [id number] MR: [id number] V: [id number] EXAM DATE: ORDERING PHYSICIAN: ANGEL BARNEY TECHNOLOGIST: JUDAH Test Reason : SOB Blood Pressure : / mmHG Vent. Rate : 077 BPM Atrial Rate : 077 BPM P-R Int : 166 ms QRS Dur : 110 ms QT Int : 394 ms P-R-T Axes : 014 -50 044 degrees QTc Int : 445 ms Normal sinus rhythm Left anterior fascicular block ST and T wave abnormality, consider anterior ischemia Abnormal ECG When compared with ECG of 07-DEC-2014 15:37, premature atrial complexes are no longer present ST now depressed in Anterior leads T wave inversion now evident in Anterior leads Confirmed by RADHA CHAMPAGNE ([id number]) on 01/24/2018 6:30:13 AM Referred By: JANE Confirmed By:RADHA CHAMPAGNE
[2018-01-23] MEDS ORDERED: IOPAMIDOL 76% 75 ML INFUS BTL 75 ML ONE (17:06)
[2018-01-23] MEDS ORDERED: NS 0.9% 25 ML BAG 50 ML ONE (17:06)
[2018-01-23 17:30] LABS: PLATELET COUNT, AUTOMATED 112 K/uL (150-450)
--- NOTE | 2018-01-23 18:47 | RADIOLOGY IMAGING REPORT ---
FACILITY: [facility] PATIENT NAME: Nicola Kumar : 1945 MR: [id number] V: [id number] EXAM DATE: ORDERING PHYSICIAN: ANGEL BARNEY TECHNOLOGIST: Location: [facility] Patient: Nicola Kumar : 1945 Visit/Account:[id number] Date of Sevice: 01/23/2018 EXAMINATION: CT CHEST PULMONARY ANGIOGRAM COMPARISON: Chest x-ray 12/29/2017. CT abdomen and pelvis 11/24/2017. HISTORY: Dx today with bilat DVTs, short of breath, eval for PE PROCEDURE: Pulmonary arterial phase imaging of the chest with 75 mL intravenous Isovue 370. Reconstru ction of the source data set includes multiplanar 2D in the sagittal and coronal planes, and 3D recon structed coronal slab MIP series. One of the following dose optimization techniques was utilized in the performance of this exam: Autom ated exposure control; adjustment of the mA and/or kV according to the patient's size; or use of an i terative reconstruction technique. Specific details can be referenced in the facility's radiology C T exam operational policy. FINDINGS: Pulmonary vasculature: There is good contrast opacification of the pulmonary arterial system. Small amount of nonocclusive distal segmental and subsegmental pulmonary emboli in the right middle and rig ht lower lobes. Left lower lobe posterior basal segmental and subsegmental occlusive embolus. Minimal nonocclusive distal segmental embolus in the left upper lobe. Main pulmonary artery size is within n ormal limits. Cardiac and mediastinum: Cardiac chambers are unremarkable; RV: LV ratio is within normal limits. Inf usion port. No pericardial effusion. No thoracic aortic aneurysm. Lungs and pleura: No evidence of pulmonary infarct. No consolidation or nodule. No pneumothorax, john a, or effusion. Airways: Negative. Upper abdomen: Hepatic metastatic disease is incompletely evaluated due to the phase of enhancement. The known pancreatic tail mass is not included on this study. Osseous structures: Negative. IMPRESSION: 1. Small amount of bilateral pulmonary emboli. No pulmonary infarct are evidence of acute right ventr icular strain. 2. Hepatic metastatic disease. Results were discussed with Janie Reno at 01/23/2018 6:43 PM. Report Dictated By: Olivier Cummnigs MD at 01/23/2018 6:34 PM Report E-Signed By: Olivier Cummings MD at 01/23/2018 6:43 PM WSN:[id number]
[2018-01-23 21:08] VITALS: BP 154/81
[2018-01-23] MEDS ORDERED: INFLUENZA VIRUS VAC 0.5 ML SYR IM ONLY ONE (21:20)
[2018-01-23] MEDS ORDERED: HYPROMELLOSE 0.4% LUB 15ML BTL OD PRN (21:20)
[2018-01-23] MEDS ORDERED: APAP/HYDROCODONE 325/5 TAB PO PRN (21:20)
--- NOTE | 2018-01-23 21:33 | History & Physical ---
History of Present Illness Chief Complaint Shortness of breath and leg pain History of Present Illness This patient presented to the emergency room after being found to have bilateral lower extremity DVT's as part of an outpatient work up. He also complained of shortness of breath over the past month. History Problems: (1) Pancreatic cancer metastasized to liver Status: Chronic (2) Depression Status: Chronic (3) Bipolar disorder with severe depression Status: Chronic Home Meds Reported Medications Zolpidem Tartrate (AMBIEN) 10 Mg Tablet, 1 TAB PO QHS, TAB 12/28/17 Lorazepam (LORAZEPAM) 0.5 Mg Tablet, 1 MG PO BID 12/07/17 Memantine Hcl 10 Mg Tab (NAMENDA 10 MG TAB) 10 Mg Tablet, 10 MG PO BID, TAB 12/07/17 Hypromellose (NATURAL BALANCE TEARS) 15 Ml Drop, 15 ML OD Y for DRY EYES, DROP 02/10/15 Multivits,Th W-Fe,Other Min (THERA-M) 1 Each Tablet, 1 EACH PO DAILY 02/10/15 Gabapentin (NEURONTIN) 300 Mg Capsule, 300 MG PO QHS, CAPSULE 02/10/15 Carbidopa/Levodopa (CARBIDOPA-LEVO 25-100 MG ODT) 1 Each Tab.rapdis, 2 EACH PO unknown TID @ 0730 1130 1630 12/07/14 Lamotrigine (Lamictal) 100 Mg Tab, 300 MG PO QHS, 0 Refills 02/23/09 Discontinued Scripts Tramadol Hcl (TRAMADOL HCL) 50 Mg Tablet, 1-2 TAB PO Q4H Y for PAIN, #20 TAB 0 Refills Prov:RADHA GIFFORD MD 12/29/17 Docusate Sodium (COLACE) 100 Mg Capsule, 1 CAP PO BID, #30 CAP 0 Refills TAKE WITH A FULL GLASS OF WATER Prov:RADHA GIFFORD MD 12/29/17 Allergies: Coded Allergies: No Known Drug Allergies (Verified , 01/23/18) Hx Smoking: No Smoking Status: Never Smoker Exposure to Second Hand Smoke?: No Caffeine Intake: Coffee, Soda Caffeine/Cups Per Day: SODA 2X A WEEK Hx Alcohol Use: No Hx Substance Use Disorder: No (POT) Social Drug Use: Former Social Drugs: Marijuana Review of Systems All Systems Reviewed/Normal: Yes, Except as Noted Respiratory: Shortness of Breath Exam Vital Signs Vital Signs Date Time Temp Pulse Resp B/P (MAP) Pulse Ox O2 Delivery O2 Flow Rate FiO2 01/23/18 21:08 97.5 80 20 154/81 (105) 94 Nasal Cannula 2.0 Neuro: No Gross deficits Eyes: PERRLA Cardiovascular: Regular Rate and Rhythm Respiratory: Clear to Auscultation GI: Abd Soft and Non-Tender Extremities: No Edema Integumentary: No Cyanosis Medical Decision Making Data Points Result Diagram: 01/23/18 17001/23/18 170 EKG / Imaging Imaging CT chest reviewed. Assessment and Plan Problems: (1) PE (pulmonary thromboembolism) Status: Acute Assessment & Plan: A CT scan did show bilateral pulmonary emboli. He has been started on treatment with Xarelto. (2) DVT (deep venous thrombosis) Status: Acute Assessment & Plan: An ultrasound did show bilateral lower extremity clot. He is on treatment as above. (3) Pancreatic cancer metastasized to liver Status: Chronic Assessment & Plan: He is followed through the cancer center. (4) Bipolar disorder with severe depression Status: Chronic Assessment & Plan: He is on chronic treatment with Lamictal. (5) Parkinson disease Assessment & Plan: He is on chronic treatment with Sinemet. Copies to: RADHA WARE MD; JASON BOWEN MD Venous Thromboembolism Antithrombotics Is Pt On Any Antithrombotics?: Yes Exam Sepsis Risk: No Definite Risk Problem Qualifiers (1) DVT (deep venous thrombosis): DVT location: lower extremity Affected thrombotic vein of extremity: femoral Chronicity: acute Laterality: bilateral Qualified Codes: I82.413 - Acute embolism and thrombosis of femoral vein, bilateral RADHA CHAMPAGNE DO Jan 23, 2018 21:33
[2018-01-23] MEDS ORDERED: GABA-549 PO ×2 (21:55)
[2018-01-23] MEDS ORDERED: CARB-71 PO (22:52)
[2018-01-23] MEDS: MEMANTINE HCL 10 MG TABLET PO SCH (23:00)
[2018-01-23] MEDS: RIVAROXABAN 10 MG TAB PO SCH (23:10)
[2018-01-24] MEDS: lamoTRIgine 100 MG TAB PO SCH ×2 (00:01→21:58)
[2018-01-24] MEDS: GABAPENTIN 300 MG CAP PO SCH ×2 (00:01→21:48)
[2018-01-24] MEDS: CARBIDOPA/LEVODOPA 25/100 TAB PO SCH ×4 (00:02→21:48)
[2018-01-24] MEDS: ZOLPIDEM TARTRATE 10 MG TAB PO SCH ×2 (00:02→21:49)
[2018-01-24 00:11] VITALS: BP 154/81
[2018-01-24 03:01] VITALS: BP 124/80
[2018-01-24 06:16] LABS: PLATELET COUNT, AUTOMATED 93 K/uL (150-450)
[2018-01-24 07:39] VITALS: BP 107/73
[2018-01-24] MEDS: LORazepam 0.5 MG TAB PO SCH ×3 (09:00→21:58)
[2018-01-24] MEDS: PSYLLIUM 28% 1 PACKET PO SCH (09:16)
[2018-01-24] MEDS: RIVAROXABAN 10 MG TAB PO SCH (09:16)
[2018-01-24] MEDS: MEMANTINE HCL 10 MG TABLET PO SCH ×2 (09:17→21:49)
[2018-01-24 10:01] VITALS: Ht 172.7 cm; Wt 72.6 kg
[2018-01-24 11:54] VITALS: BP 119/78
--- NOTE | 2018-01-24 12:42 | Hospitalist Progress Note ---
Subjective Progress Notes Subjective He reports doing "better". Less leg/foot pain and swelling. Less dyspnea. Physical Exam Vital Signs Date Time Temp Pulse Resp B/P (MAP) Pulse Ox O2 Delivery O2 Flow Rate FiO2 01/24/18 11:54 98.4 81 20 119/78 (92) 92 Nasal Cannula 0.5 Intake and Output 01/25/18 06:59 Intake Total 740 ml Balance 740 ml Intake Oral 740 ml # Voids 1 General Appearance: Alert, Awake Cardiovascular: Regular Rate and Rhythm Respiratory: Clear to Auscultation Extremities: Warm, Perfused, Edema (R>L) Integumentary: Generalized Fragile Skin Psych: Alert & Oriented X3 Result Diagram: 01/24/1861001/24/18610 Assessment and Plan Problems: (1) PE (pulmonary thromboembolism) Status: Acute Assessment & Plan: CT scan did show bilateral pulmonary emboli. He appears to be stable at this point. His oxygen requirement is minimal. He was started on treatment with Xarelto. After discussion with Dr. Car (oncology), we will switch to Lovenox 1mg/Kg SQ q12hrs until he can get Savaysa 60mg PO daily. (2) DVT (deep venous thrombosis) Status: Acute Assessment & Plan: Ultrasound venogram did show bilateral lower extremity clot. He is on treatment as above. (3) Pancreatic cancer metastasized to liver Status: Chronic Assessment & Plan: He is followed through the cancer center. His total bilirubin has been elevated on the past several evaluations. Dr. Car would like to have further evaluation of his biliary system to see if he has any obstruction that may require ERCP/stent placement. Will discuss this further with the patient and his family. (4) Bipolar disorder with severe depression Status: Chronic Assessment & Plan: He is on chronic treatment with Lamictal. (5) Parkinson disease Assessment & Plan: He is on chronic treatment with Sinemet. Exam Sepsis Risk: No Definite Risk Problem Qualifiers (1) DVT (deep venous thrombosis): DVT location: lower extremity Affected thrombotic vein of extremity: femoral Chronicity: acute Laterality: bilateral Qualified Codes: I82.413 - Acute embolism and thrombosis of femoral vein, bilateral JFEF MOREL MD Jan 24, 2018 12:42
[2018-01-24 20:22] VITALS: BP 135/80
[2018-01-24] MEDS: ENOXAPARIN 100 MG/ML SYR SC SCH (21:48)
[2018-01-25 03:24] VITALS: BP 118/70
[2018-01-25 05:56] LABS: PLATELET COUNT, AUTOMATED 86 K/uL (150-450)
[2018-01-25] MEDS: PSYLLIUM 28% 1 PACKET PO SCH (08:56)
[2018-01-25] MEDS: CARBIDOPA/LEVODOPA 25/100 TAB PO SCH ×2 (08:56→13:52)
[2018-01-25] MEDS: MEMANTINE HCL 10 MG TABLET PO SCH (08:56)
[2018-01-25] MEDS: ENOXAPARIN 100 MG/ML SYR SC SCH (08:57)
--- NOTE | 2018-01-25 09:32 | RADIOLOGY IMAGING REPORT ---
FACILITY: [facility] - [place] PATIENT NAME: Nicola Kumar : 1945 MR: [id number] V: [id number] EXAM DATE: ORDERING PHYSICIAN: JEFF MOREL TECHNOLOGIST: Location: [facility] - [place] Patient: Nicola Kumar : 1945 Visit/Account:[id number] Date of Sevice: 01/25/2018 LIVER HISTORY: panceratic cancer/? biliary obstruction COMPARISON: CT abdomen/pelvis dated November 24, 2017. FINDINGS: Liver: Diffusely heterogeneous with multiple hepatic metastasis. There appears to be areas of intrahe patic biliary ductal dilatation. Gallbladder: Unremarkable; no stones or sludge. Common duct: Normal, 5 mm diameter. Pancreas: Suboptimal visualization of a hypoechoic mass within the pancreatic tail measuring approxim ately 1.1 x 1.8 x 1.5 cm. Right kidney: Negative. Upper abdominal aorta and IVC: Patent. Ascites: None visualized. IMPRESSION: 1. Areas of intrahepatic biliary ductal dilatation which are likely related to mass effect or invasio n from hepatic metastasis. No central biliary ductal dilatation identified as the common bile duct is normal in diameter. 2. Suboptimal visualization of a hypoechoic pancreatic mass. Report Dictated By: Barak Bender MD at 01/25/2018 9:24 AM Report E-Signed By: Barak Bender MD at 01/25/2018 9:29 AM WSN:[id number]
--- NOTE | 2018-01-25 10:18 | Hospitalist Depart ---
Discharge Summary Reason for Hosp/Final Diag: (1) PE (pulmonary thromboembolism) Status: Acute Hospital Course & Plan: CT scan did show bilateral pulmonary emboli. He was stable on admission and remained stable during his inpatient stay. His oxygen requirement was minimal. He was started on treatment with Xarelto initially, but after discussion with Dr. Bowen (oncology), he was switched to Lovenox 1mg/Kg SQ q12hrs. Upon discharge, he will fill and start a prescription for Savaysa 60mg PO daily. The patient's family was given instructions on how to start the oral medication at home. (2) DVT (deep venous thrombosis) Status: Acute Hospital Course & Plan: Ultrasound venogram did show bilateral lower extremity clot. He was started on treatment as above. (3) Pancreatic cancer metastasized to liver Status: Chronic Hospital Course & Plan: He is followed through the cancer center. His total bilirubin has been elevated on the past several evaluations. Dr. Bowen recommended further evaluation of his biliary system to see if there was any evidence of obstruction that may require ERCP/stent placement. US of the liver was performed and did not show obstruction of the common bile duct. There was evidence of intrahepatic duct obstruction. (4) Bipolar disorder with severe depression Status: Chronic Hospital Course & Plan: He was continued on chronic treatment with Lamictal. (5) Parkinson disease Hospital Course & Plan: He was continued on chronic treatment with Sinemet. Departure Weight (Pounds): 160 Result Diagram: 01/25/18 0501/25/18 0530 Item Value Date Time Calcium Level 10.3 mg/dl H 01/23/18 1706 Total Bilirubin 6.5 mg/dl H 01/23/18 1706 Aspartate Amino Transf (AST/SGOT) 71 U/L H 01/23/18 1706 Alanine Aminotransferase (ALT/SGPT) 22 U/L 01/23/18 1706 Alkaline Phosphatase 572 U/L H 01/23/18 1706 Troponin I 0.027 ng/ml 01/23/18 1706 Total Protein 6.3 gm/dl 01/23/18 1706 Albumin 3.0 g/dl L 01/23/18 1706 Calcium Level 10.2 mg/dl 01/25/18 0530 Total Bilirubin 4.2 mg/dl H 01/25/18 0530 Aspartate Amino Transf (AST/SGOT) 124 U/L H 01/25/18 0530 Alanine Aminotransferase (ALT/SGPT) 27 U/L 01/25/18 0530 Alkaline Phosphatase 584 U/L H 01/25/18 0530 Total Protein 5.6 gm/dl L 01/25/18 0530 Albumin 2.7 g/dl L 01/25/18 0530 Imaging FACILITY: [facility] [place] PATIENT NAME: Nicola Kumar : 1945 MR: [id number] V: [id number] EXAM DATE: ORDERING PHYSICIAN: JEFF MOREL TECHNOLOGIST: Location: [facility] Patient: Nicola Kumar : 1945 Visit/Account:[id number] Date of Sevice: 01/25/2018 LIVER HISTORY: panceratic cancer/? biliary obstruction COMPARISON: CT abdomen/pelvis dated November 24, 2017. FINDINGS: Liver: Diffusely heterogeneous with multiple hepatic metastasis. There appears to be areas of intrahepatic biliary ductal dilatation. Gallbladder: Unremarkable; no stones or sludge. Common duct: Normal, 5 mm diameter. Pancreas: Suboptimal visualization of a hypoechoic mass within the pancreatic tail measuring approximately 1.1 x 1.8 x 1.5 cm. Right kidney: Negative. Upper abdominal aorta and IVC: Patent. Ascites: None visualized. IMPRESSION: 1. Areas of intrahepatic biliary ductal dilatation which are likely related to mass effect or invasion from hepatic metastasis. No central biliary ductal dilatation identified as the common bile duct is normal in diameter. 2. Suboptimal visualization of a hypoechoic pancreatic mass. Report Dictated By: Barak Bender MD at 01/25/2018 9:24 AM Report E-Signed By: Barak Bender MD at 01/25/2018 9:29 AM WSN:[id number] Condition: Improved Discharge: Home, Self Care Time Spent: < 30 min Discharge Instructions Home Meds Active Scripts Edoxaban Tosylate (Savaysa) 60 Mg Tablet, 1 TAB PO QPM, #30 TAB Prov:JIGAR MOREL MD 01/25/18 Reported Medications Carbidopa/Levodopa (SINEMET 25-100 MG TABLET) 1 Each Tablet, 2 EACH PO TID 01/23/18 Gabapentin (GABAPENTIN) 300 Mg Capsule, 600 MG PO HS, CAPSULE 01/23/18 Gabapentin (GABAPENTIN) 300 Mg Capsule, 300 MG PO BIDBL, CAPSULE 01/23/18 Zolpidem Tartrate (AMBIEN) 10 Mg Tablet, 1 TAB PO QHS, TAB 12/28/17 Lorazepam (LORAZEPAM) 0.5 Mg Tablet, 1 MG PO BID 12/07/17 Memantine Hcl 10 Mg Tab (NAMENDA 10 MG TAB) 10 Mg Tablet, 10 MG PO BID, TAB 12/07/17 Hypromellose (NATURAL BALANCE TEARS) 15 Ml Drop, 15 ML OD Y for DRY EYES, DROP 02/10/15 Multivits,Th W-Fe,Other Min (THERA-M) 1 Each Tablet, 1 EACH PO DAILY 02/10/15 Lamotrigine (Lamictal) 100 Mg Tab, 300 MG PO QHS, 0 Refills 02/23/09 Discontinued Reported Medications Carbidopa/Levodopa (CARBIDOPA-LEVO 25-100 MG ODT) 1 Each Tab.rapdis, 2 EACH PO unknown TID @ 0730 1130 1630 12/07/14 Discontinued Scripts Tramadol Hcl (TRAMADOL HCL) 50 Mg Tablet, 1-2 TAB PO Q4H Y for PAIN, #20 TAB 0 Refills Prov:RADHA GIFFORD MD 12/29/17 Docusate Sodium (COLACE) 100 Mg Capsule, 1 CAP PO BID, #30 CAP 0 Refills TAKE WITH A FULL GLASS OF WATER Prov:RADHA GIFFORD MD 12/29/17 Diet: Regular Activity: As Tolerated Special Instructions: The patient is to call to schedule a follow up appointment with the Cancer Center after discharge. Copies to: JASON BOWEN MD Venous Thromboembolism Antithrombotics Is Pt On Any Antithrombotics?: Yes Problem Qualifiers (1) DVT (deep venous thrombosis): DVT location: lower extremity Affected thrombotic vein of extremity: femoral Chronicity: acute Laterality: bilateral Qualified Codes: I82.413 - Acute embolism and thrombosis of femoral vein, bilateral JIGAR MOREL MD Jan 25, 2018 10:18
[2018-01-25] MEDS ORDERED: EDOX60TA PO (10:20)
[2018-01-25 11:31] VITALS: BP 125/82
[2018-01-25] MEDS ORDERED: HEPARIN FLSH (PORT) 500 UN/5ML ONE (13:53)
--- NOTE | 2018-01-25 14:39 | Medical Nutrition Therapy ---
Nutrition Anthropometrics Height (Inches): 68.00 Height (Calculated Centimeters: 172.921357 Weight (Pounds): 160 Weight (Calculated Kilograms): 72.575 Satish Nutrition Score: Probably Inadequate Satish Nutrition Risk Score: 16 Dietary Referral Nutrition Risk Factors: Nutrition Risk Comment: Physical Findings Physical Appearance: BMI 24 WNR Skin Appearance Skin Appearance: Edema Edema Location Modifier: Right Edema Location: Lower Extremity Type of Edema: Degree of Edema: Gastrointestinal Symptoms GI Symtoms: Tube Present: Bowel Sounds: Recent Bowel Pattern: Stool Characteristics: Nutritional Diagnosis Nutritional Risk Acuity 2: Head/Neck/GI Cancer Nutritional Risk Acuity 3: Cancer Past Medical History: Parkinsons, Depression, Bipolar, Pancreatic cancer, DVT, hypoxia, PE Nutritional Acuity: 2-Moderate Nutrition Problem/Etiology/Sym: Increase nutrient needs realted to physiological causes as evidence by DVT, and pulmonary thromboembolism. Energy Requirement: 1881 ([place] ) Protein Requirement: 73 (1g/kg ) Fluid Requirement: 2190 (30ml/kg) Diet Type: Diet as Tolerated JEEVAN/REG Nutrition Intervention: Cont diet as ordered, Encourage intake Nutrition Monitoring & Eval RD Patient Assessment Time: 15 minutes Patient Nutrition Acuity: 2-Moderate Follow Up Date: Jan 29, 2018 Nutritional Comment: 6/6 Pt admitted for DVT in LE, pulmonary embolism and hypoxia. Pt came in shortness of breath. CT had shown positive for DVT in LE. Pt has Pancreatic cancer metastasized to liver. Notable labs are low H/H and elevated BUN (31). Pt is on regular diet with 100% oral intake. Continue to monitor pt progress, labs and encourage intake. MT 6/7 Pt continues on regular diet with 50% to 100% oral intake. Pt states that he is feeling better. Pt states that he will follow up with cancer center after discharge. Pt total bilirubin remains elevated (4.2), BUN has decreased (28), AST (124), and alb (2.7). Will continue to monitor pt clinical progress, labs and encourage intake. MT CARMITANENA Jan 25, 2018 13:15
[2018-01-25] MEDS ORDERED: LORazepam 0.5 MG TAB PO SCH (21:00)
== END 2018-01-25 14:00 | disposition home or self-care (01) | DRG 176 ==
LOC: ER 16:37 → MED 19:30
PROVIDERS: ADMIT Family Medicine; ATTEND Family Medicine
DX: I26.99 Other pulmonary embolism without acute cor pulmonale (principal); I82.422 Acute embolism and thrombosis of left iliac vein; I82.412 Acute embolism and thrombosis of left femoral vein; I82.433 Acute embolism and thrombosis of popliteal vein, bilateral; C25.9 Malignant neoplasm of pancreas, unspecified; C78.7 Secondary malignant neoplasm of liver and intrahepatic bile duct; R09.02 Hypoxemia; F31.9 Bipolar disorder, unspecified; G20 Parkinson's disease; Z85.828 Personal history of other malignant neoplasm of skin; Z92.21 Personal history of antineoplastic chemotherapy
CPT/HCPCS: 71275; 76705; 82040; 82247; 82310; 82374; 82435; 82565; 82947; 83880; 84075; 84132; 84155; 84295; 84450; 84460; 84484; 84520; 85025; 93005; 99282; J1642; J1650; J3490; J7040; Q9967

== ENCOUNTER → 2018-01-23 | Outpatient (REF) | payer MEDICARE, OTHER ==
[2014-12-22 15:12] VITALS: BMI 26.3
[~2018-01-23] MED LIST changes: +CARB-71 PO; +GABA-549 PO
== END ==
LOC: ZZSENDIN 15:43
PROVIDERS: ATTEND Physician Assistant
DX: R06.00 Dyspnea, unspecified (principal)
CPT/HCPCS: 85379

== ENCOUNTER → 2018-01-23 | Outpatient (CLI) | payer MEDICARE, OTHER ==
[2014-12-22 15:12] VITALS: BMI 26.3
--- NOTE | 2018-01-23 16:53 | RADIOLOGY IMAGING REPORT ---
FACILITY: [facility] [place] PATIENT NAME: Nicola Kumar : 1945 MR: [id number] V: [id number] EXAM DATE: ORDERING PHYSICIAN: RACHEL SANTIAGO TECHNOLOGIST: [facility] Patient: Nicola Kumar : 1945 Visit/Account:[id number] Date of Sevice: 01/23/2018 Exam type: VENOUS DOPP LOWER BILAT EXTREM History: Stage IV pancreatic cancer with metastases undergoing chemotherapy ankle swelling Comparison: None. Findings: There is thrombus in the left external iliac vein, left common femoral vein, left superficial femoral vein left and popliteal vein. The IVC appeared to be patent. The left posterior tibial vein perone al vein and anterior tibial vein appeared patent and compressible. The right common femoral vein greater saphenous vein superficial femoral vein and proximal right popl iteal vein appear compressible. The distal right popliteal vein with noncompressible containing thro mbus. Right posterior tibial vein peroneal vein were noncompressible. The right anterior tibial vei n was compressible IMPRESSION: 1. Extensive DVT is identified in the left external iliac vein through the left popliteal vein from the distal right popliteal vein into the right posterior tibial and peroneal veins. Yesenia Santiago was notified of these findings by telephone by the technologist at the time of the examination. Report Dictated By: Briana Hernandez MD at 01/23/2018 4:42 PM Report E-Signed By: Briana Hernandez MD at 01/23/2018 4:48 PM WSN:[email or web address]
== END ==
LOC: US 15:18
PROVIDERS: ATTEND Physician Assistant
DX: I82.4Y2 Acute embolism and thrombosis of unspecified deep veins of left proximal lower extremity (principal)
CPT/HCPCS: 93970

== ENCOUNTER 2018-01-24 14:35 | Outpatient (RCR) | payer MEDICARE, OTHER ==
[2018-01-24 10:01] VITALS: BMI 24.3
[~2018-01-24 14:35] MED LIST changes: +CARB-71 PO; +GABA-549 PO
[2018-01-25] MEDS ORDERED: EDOX60TA PO (10:20)
--- NOTE | 2018-01-26 15:25 | Transitional Care Management ---
Assessment Visit Type: Telephone Visit Spoke with: ANIL Cardiac: WNL Respiratory: WNL Except Respiratory Comment: 01/26 2L NC, denies SOB with activity. I reviewed O2 saftey. GI: Nutrition: WNL GI Comment: 01/26 Appetite greatly improved. Wt Gain/Loss: WNL Constipation?: No : WNL Musculoskeletal, Exercise: WNL Musculoskeletal, Excercise Com: 01/26 Tollerating activity well. Mobility/Falls: WNL Mobility Comment: 01/26 He is using a walker in the home. He now has a shower chair. Integumentary: WNL Except Integumentary Comment: 01/25 Less lower ext reddness. Feeling of Well Being: WNL Feeling of Well Being Comment: 01/26 "He is feeling and doing so much better now that he is home." Socialization: WN Socialization Comment: 01/26 Lives at home. Pain/Management: WNL Scheduled Follow-Up with [facility]: Yes (01/26 He went to the cancer center after discharge form hospital.) Primary Care Provider Visits: Yes Needed or Pending Tests: Yes (01/26 Cancer center managing.) Following Discharge Instructio: Yes TCM Discharge Criteria Medication Knowledge: 01/26 Discharge medications reviewed with ANIL. Transitional Care Comment: 01/24 Interested but slightly forgetful. 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 Also discussed sx&sx of problems to be aware of both with PEs and DVTs. GAve him information on PE, DVT and Xarolto 01/26 He is doing well since getting home, appetite has returned, moving about his home safely with a walker. They decline a home visit tomorrow. MELODY ALFORD Jan 26, 2018 15:25
--- NOTE | 2018-01-31 11:50 | Transitional Care Management ---
Assessment Visit Type: Telephone Visit (01/31 TJ) Cardiac: WNL Respiratory: WNL Except Respiratory Comment: 01/26 2L NC, denies SOB with activity. I reviewed O2 saftey. 01/31 O2 1L GI: Nutrition: WNL GI Comment: 01/26 Appetite greatly improved. 01/31 Appitite continues to improve Wt Gain/Loss: WNL Constipation?: No : WNL Musculoskeletal, Exercise: WNL Musculoskeletal, Excercise Com: 01/26 Tollerating activity well. Mobility/Falls: WNL Mobility Comment: 01/26 He is using a walker in the home. He now has a shower chair. Integumentary: WNL Except Integumentary Comment: 01/25 Less lower ext reddness. 01/31 Only a small spot on legs. welling and redness almost totally gone Feeling of Well Being: WNL Feeling of Well Being Comment: 01/26 "He is feeling and doing so much better now that he is home." Socialization: WNL Socialization Comment: 01/26 Lives at home. Pain/Management: WNL Scheduled Follow-Up with Provi: Yes (01/31 at [facility] at this time) Primary Care Provider Visits: Yes Needed or Pending Tests: Yes (01/26 Cancer center managing.) Following Discharge Instructio: Yes TCM Discharge Criteria Medication Knowledge: 01/26 Discharge medications reviewed with TJ. Transitional Care Comment: 01/24 Interested but slightly forgetful. is his primary photo studio assistant and reminder.Discussed some about activity and not just sitting or laying d/t possibilty of pneumonia and how to avoid this happening once imform him about his activity level. Also discussed sx&sx of problems to be aware of both with PEs and DVTs. GAve him information on PE, DVT and Xarolto 01/26 He is doing well since getting home, appetite has returned, moving about his home safely with a walker. They decline a home visit tomorrow. 01/31 ANIL gave information as Nicola was at [facility] for FU. I sugggested DC calls but she was hesitant. WillFu one more time and see how all is going. Copies to: RADHA WARE MD, JOAN Jan 31, 2018 11:50
--- NOTE | 2018-02-09 13:47 | Transitional Care Management ---
Assessment Cardiac: WNL Respiratory: WNL Except Respiratory Comment: 01/26 2L NC, denies SOB with activity. I reviewed O2 saftey. 01/31 O2 1L GI: Nutrition: WNL GI Comment: 01/26 Appetite greatly improved. 01/31 Appitite continues to improve Wt Gain/Loss: WNL Constipation?: No : WNL Musculoskeletal, Exercise: WNL Musculoskeletal, Excercise Com: 01/26 Tollerating activity well. Mobility/Falls: WNL Mobility Comment: 01/26 He is using a walker in the home. He now has a shower chair. Integumentary: WNL Except Integumentary Comment: 01/25 Less lower ext reddness. 01/31 Only a small spot on legs. welling and redness almost totally gone Feeling of Well Being: WNL Feeling of Well Being Comment: 01/26 "He is feeling and doing so much better now that he is home." Socialization: WNL Socialization Comment: 01/26 Lives at home. Pain/Management: WNL Scheduled Follow-Up with Provi: Yes (01/31 at [facility] at this time) Primary Care Provider Visits: Yes Needed or Pending Tests: Yes (01/26 [facility] center managing.) Following Discharge Instructio: Yes TCM Discharge Criteria Medication Knowledge: 01/26 Discharge medications reviewed with ANIL. Transitional Care Comment: 01/24 Interested but slightly forgetful. is his primary assistant center director and reminder.Discussed some about activity and not just sitting or laying d/t possibilty of pneumonia and how to avoid this happening once Dr imform him about his activity level. Also discussed sx&sx of problems to be aware of both with PEs and DVTs. GAve him information on PE, DVT and Xarolto 01/26 He is doing well since getting home, appetite has returned, moving about his home safely with a walker. They decline a home visit tomorrow. 01/31 ANIL gave information as Nicola was at [facility] for FU. I sugggested DC calls but she was hesitant. WillFu one more time and see how all is going. unable to contact. Copies to: RADHA WARE MD, JOAN Feb 09, 2018 13:47
== END 2018-02-12 12:34 | disposition home or self-care (01) ==
LOC: TCM 14:35
PROVIDERS: ATTEND Nurse Practitioner
DX: Z02.9 Encounter for administrative examinations, unspecified (principal)

== ENCOUNTER 2018-01-31 09:30 | Outpatient (RCR) | payer MEDICARE, OTHER ==
[2017-12-07 15:49] VITALS: BP 124/82
[2017-12-07 17:01] LABS: PLATELET COUNT, AUTOMATED 174 K/uL (150-450)
[2017-12-07 17:11] LABS: INR 1.27
--- NOTE | 2017-12-08 19:51 | ONCOLOGY HISTORY AND PHYSICAL ---
REFERRING PROVIDER Faith Santiago PA-C REASON FOR CONSULTATION Concern for metastatic pancreatic cancer. CHIEF COMPLAINT Fatigue, parkinsonism. HISTORY OF PRESENT ILLNESS Mr. Kumar is here with his family today. He relates his recent history to me. He does have a history of Parkinson's disease and arthritis, as well as prior skin cancers. He was in his usual state of health when he recently presented to his primary care provider. Routine labs performed at that time had revealed significant liver function test abnormalities. For this reason, he was sent for a CT scan of the abdomen and pelvis. This was performed on November 24. The CT scan unfortunately revealed a large mass involving the distal body and tail of the pancreas, as well as numerous hepatic metastases and a 2.7 cm hypoattenuating left adrenal mass. There was also a probable splenic metastasis. There were numerous small hypoattenuating lesions throughout the kidneys, thought potentially to represent cysts, but were too small to characterize. There was an ill-defined periaortic mass measuring 2 x 1.8 x 2.7 cm, thought likely to represent a metastatic lymph node, as well as a 1.8 x 1.4 x 1.9 cm portacaval lymph node that was also thought to be likely a metastatic lymph node. The patient has been informed of the findings on the CT scan, and he was referred to this clinic for further workup. Today, Patrick reports that he is feeling pretty well in general, but he is understandably worried about the possibility of pancreatic cancer. He reports no abdominal pain today. His appetite has been fair, and his bowel habits have been fairly regular. His energy level is good, despite his parkinsonism. He tends to stay very active, and he goes to the gym quite often. REVIEW OF SYSTEMS Otherwise negative, and all systems were reviewed. PAST MEDICAL HISTORY 1. Parkinson disease. 2. Arthritis. 3. Reported history of skin cancers of face. CURRENT MEDICATIONS 1. Carbidopa/levodopa. 2. Lorazepam p.r.n. 3. Zolpidem p.r.n. 4. Gabapentin. 5. Namenta. 6. Lamictal. ALLERGIES No known drug allergies. SOCIAL HISTORY The patient is a nonsmoker and nondrinker. There is no history of illicit drug use. FAMILY HISTORY There is a history of breast cancer in his mother. VITAL SIGNS Temperature 97.9, blood pressure 124/82, heart rate is 85, respirations 16, oxygen saturation is 92% on room air. Weight is 76.1 kg. PHYSICAL EXAMINATION GENERAL: Patient is alert and oriented times three, in no apparent distress sitting in the exam room chair. He is in good spirits and interactive. HEENT: Exam reveals anicteric sclerae. NEUROLOGIC: Exam does reveal some tremor, and gait is somewhat shuffling. EXTREMITIES: Exam reveals no edema, clubbing or cyanosis. There is no concerning skin rash or lesion otherwise. LABORATORY STUDIES From November 07, 2017, reveal an AST of 52, an ALT of 376, total bilirubin 0.6 and GGT of 570. IMAGING Please see history of present illness. PATHOLOGY None today. ASSESSMENT AND PLAN Pancreatic mass, concern for metastatic pancreatic cancer. I had a good discussion with Mr. Kumar and his family today. We spent time discussing his initial laboratory studies, as well as his CT imaging results. Symptomatically , he seems to be doing quite well, with the exception of ongoing parkinsonism. He remains extraordinarily active, considering the circumstances, and his performance status is excellent. We spent time discussing the likely diagnosis of pancreatic adenocarcinoma, but this is not for certain, as we do not yet have tissue confirmation via biopsy. I have recommended that he go for a CT- guided biopsy of a liver lesion for this confirmation. We discussed this procedure, and this will need to be performed in [place] at [facility]. We did move on today to discuss potential treatment options, and goals of care. Given the appearance of his skin, unless there are unexpected findings on his upcoming biopsy, all treatment will be palliative in nature. Chemotherapy will represent the cornerstone of his management. We spent time today also discussing gemcitabine and Abraxane as well as folfirinox, both as reasonable first line regimens for presumed metastatic pancreatic adenocarcinoma. I do not think that surgery will plan an active role in his anticancer management, nor will radiation therapy unless he becomes symptomatic requiring palliative treatment. With our discussion today, he does seem to be taking this bad news well. He had additional questions for me, as did his family members. I will plan to talk with him on the phone after biopsy results are known, and we will plan to follow up at the next time that I am here for clinic in [place]. We discussed that if he does want to consider chemotherapy, he would need to undergo port placement as well as chemotherapy education. He has expressed understanding. I spent a total of 45 minutes with the patient and his family today, and 40 minutes of this was spent in direct counseling and coordination of care. MIKAL
[2017-12-27 15:34] VITALS: BP 100/67
--- NOTE | 2017-12-27 20:07 | ONCOLOGY FOLLOW UP NOTE ---
EVENT DATE: December 27, 2017 REASON FOR FOLLOWUP Stage IV pancreatic adenocarcinoma. CHIEF COMPLAINT Fatigue. HISTORY OF PRESENT ILLNESS Mr. Kumar is here with his family today. Since our last visit, he has undergone a liver biopsy. He reports that he is feeling at his baseline today, but he did have what sounds like some referred pain to the right shoulder for a few days after his liver biopsy. He is here to disclose pathology results and the plan moving forward for his care. REVIEW OF SYSTEMS Otherwise negative, with the exception of parkinsonism symptoms that are chronic in nature and no worse than prior. PAST MEDICAL HISTORY 1. Parkinson disease. 2. Arthritis. 3. Reported history of skin cancers of face. CURRENT MEDICATIONS 1. Carbidopa/levodopa. 2. Lorazepam p.r.n. 3. Zolpidem p.r.n. 4. Gabapentin. 5. Namenta. 6. Lamictal. ALLERGIES No known drug allergies. SOCIAL HISTORY The patient is a nonsmoker and nondrinker. There is no history of illicit drug use. FAMILY HISTORY There is a history of breast cancer in his mother. VITAL SIGNS Temperature 97.0, blood pressure 100/67, heart rate is 77, respirations 16, oxygen saturation is 90% on room air. Weight is 73.8 kg. PHYSICAL EXAMINATION GENERAL: Patient is alert and oriented times three, in no apparent distress sitting in the exam room chair. HEENT: Exam reveals anicteric sclerae. NEUROLOGIC: Exam reveals a slow and somewhat shuffling gait. Gait is steady, however. SKIN: Exam reveals no concerning rash or lesion. EXTREMITIES: Exam reveals no edema, clubbing or cyanosis. There is no erythema or tenderness to palpation of the extremities. LABORATORY STUDIES Reviewed per the [facility] record. IMAGING None today. PATHOLOGY From liver biopsy performed on December 14, 2017: Adenocarcinoma, moderately differentiated, consistent with pancreatobiliary adenocarcinoma which is favored , versus lung adenocarcinoma. ASSESSMENT AND PLAN Stage IV pancreatic adenocarcinoma. I had a good visit with Mr. Kumar and his family today. We spent time discussing his liver biopsy results. We moved on to discuss goals of care, which will be palliative in nature. We discussed chemotherapy as a cornerstone of his therapy moving forward. I do not think that he is a particularly good candidate to receive FOLFIRINOX, as I do think this would be quite toxic for him. We also discussed gemcitabine and Abraxane which I think would be reasonable. He would also have the option of considering gemcitabine monotherapy, or best supportive care. With extensive discussion today, and attention paid to patient side effects with different chemotherapy regimens, the patient has decided to try gemcitabine and Abraxane. We discussed the schedule and logistics. We discussed port placement, and that I would be making a referral for this to be done. The patient had a typed up list of multiple questions for me today, and I believe I answered all of his questions to his satisfaction. His family members also had several additional questions for me today, and I answered these to their satisfaction as well. I will plan to see him back in one month's time. I would plan for him to have started palliative chemotherapy by the time of that visit, but I would be more than happy to answer questions if they arise in the interim. I spent a total of 45 minutes of total care time with the patient and his family today. Forty minutes of this was spent in direct counseling and coordination of care. MIKAL
[2018-01-01] MEDS: LIDOCAINE/SOD BICARB 8.4% SYR ID PRN (15:45)
[2018-01-01] MEDS: HEPARIN FLSH (PORT) 500 UN/5ML IVP PRN (15:50)
[2018-01-01 15:55] LABS: PLATELET COUNT, AUTOMATED 181 K/uL (150-450)
[2018-01-03 09:47] VITALS: BP 110/67
[2018-01-03] MEDS: LIDOCAINE/SOD BICARB 8.4% SYR ID PRN (09:53)
[2018-01-03] MEDS: NS(*) 0.9% 500 ML BAG 500 ML IV PRN (09:53)
[2018-01-03] MEDS: DEXAMETHASONE SOD PHOS 10MG/ML IVP PRN (10:08)
[2018-01-03] MEDS: PALONOSETRON 0.25 MG/5 ML VIAL IVP PRN (10:08)
[2018-01-03 12:38] VITALS: BP 132/85
--- NOTE | 2018-01-03 17:24 | Medical Nutrition Therapy ---
Nutrition Anthropometrics Height (Inches): 68 Height (Calculated Centimeters: 172.7200 Weight (Pounds): 164 (patient stated wt) BMI Calculated: 26.28 Hx Weight Loss: Yes (pt states that his wt was 170lbs 6 months ago ) Satish Nutrition Score: Satish Nutrition Risk Score: Dietary Referral Nutrition Risk Factors: Nutrition Risk Comment: Nutrition/Food History eats several small meals/day, intake is less than usual Fair (states decrease food taste and dry mouth d/t meds ) Exercise: Yes (wt lifts, boxing and walks 4 miles 2x week ) Nutritional Diagnosis Nutritional Risk Acuity 2: Head/Neck/GI Cancer Past Medical History: Parkinsons, Depression, Bipolar Nutritional Acuity: 2-Moderate Nutrition Diagnosis: Increased Nutrient Needs Nutrition Etiology: Physiological Causes Energy Requirement: 2600 Protein Requirement: 75 Fluid Requirement: 1900 Nutrition Intervention: Encourage intake Nutritional Needs Comment: if intake is poor, I encouraged patient to track food intake and I would provide a calorie count Nutritional Education Nutrition Education Topic: Other (nutrition during cancer treatment ) Learning Readiness: Eager Teaching Methods: Discussion, Handout Response to Teaching: Verbalize understanding Teaching Recipient: Patient, Family Nutrition Counseling: provided handout on nutrition during cancer treatment patient states he has watches the glycemic index of foods, however understands the importance of increasing his calories and carb intake to meet his increased nutritional needs during treatment Nutrition Monitoring & Eval Nutrition Monitoring: I will monitor nutrition impact symptoms and provide education as needed RD Patient Assessment Time: [address] Assessment Type: RD Education Patient Nutrition Acuity: 2-Moderate Nutritional Comment: 01/03/18 - provided 15 min - MNT for cancer treatment JUAN ZHANG January 03, 2018 17:24
[2018-01-10] MEDS: LIDOCAINE/SOD BICARB 8.4% SYR ID PRN (09:46)
[2018-01-10] MEDS: NS(*) 0.9% 500 ML BAG 500 ML IV PRN (09:47)
[2018-01-10 09:49] VITALS: BP 90/63
[2018-01-10] MEDS: HEPARIN FLSH (PORT) 500 UN/5ML IVP PRN (11:42)
[2018-01-10 11:46] VITALS: BP 102/64
[2018-01-18 09:46] VITALS: BP 98/63
[2018-01-18] MEDS: NS(*) 0.9% 500 ML BAG 500 ML IV PRN (12:15)
[2018-01-18] MEDS: HEPARIN FLSH (PORT) 500 UN/5ML IVP PRN (12:15)
[2018-01-18] MEDS: LIDOCAINE/SOD BICARB 8.4% SYR ID PRN (12:15)
[2018-01-18 13:43] VITALS: BP 122/71
--- NOTE | 2018-01-18 17:33 | Medical Nutrition Therapy ---
Nutrition Anthropometrics Height (Inches): 68.00 Height (Calculated Centimeters: 172.7200 Weight (Pounds): 158 Hx Weight Loss: Yes (5 lbs weight loss in 2 weeks ) Nutrition/Food History dry mouth, appetite improving, issues with constipation which have resolved Fair Skipped Meals: Yes (patient provided food intake list for past 7 days, occassionally misses breakfast) Exercise: Yes (walking - much less than usual ) Breakfast: cereal, egg Lunch: 1/2 sandwich, halo oranges Dinner: chicken or beef type of entree, Snacks: cashews, ice cream, dislikes ensure/boost - states it's too sweet and thick Nutritional Education Nutrition Education Topic: Other (nutrition information on managing symptoms d/ t cancer treatment) Learning Readiness: Interested Teaching Methods: Discussion, Handout Response to Teaching: Verbalize understanding Teaching Recipient: Patient, Family Nutrition Counseling: provided information on dry mouth, high protein/calories beverages, eatings small portions every 2-3 hours, comfort food recipes Nutrition Monitoring & Eval Nutritional Goals Comment: eat small meals every 2-3 hours, nutritionally dense foods, try ensure/boost diluted with milk Nutrition Follow-Up: Fair Intake, Poor Intake Nutrition Monitoring: I will continue to monitor nutrition impact symptoms and provide nutrition information as needed RD Patient Assessment Time: 15 minutes (less than 15 min) RD Assessment Type: RD Education Patient Nutrition Acuity: 2-Moderate Nutritional Comment: provided less than 15 min - MNT for cancer treatment JUAN ZHANG RDN, AMINA January 18, 2018 17:33
[2018-01-24 10:01] VITALS: Ht 172.7 cm; Wt 71.2 kg
[2018-01-25 14:06] VITALS: BP 108/57
--- NOTE | 2018-01-30 17:55 | Oncology Progress Note ---
History of Present Illness Evaluation Date: Jan 25, 2018 Evaluation Time: 11:00 Primary Care Provider Paty Santiago Accompanied by Spouse Last seen by Dr. Bowen on 01/24/2018 inpatient round. Chief Complaint S/p Hospitalization due to Bilateral Lower Extremities DVT (deep venous thrombosis) Oncology History December 14, 2017 Stage IV pancreatic adenocarcinoma. December 14, 2017: CT-guided biopsy of a liver lesion for this confirmation. From liver biopsy performed on Adenocarcinoma, moderately differentiated, consistent with pancreatobiliary adenocarcinoma which is favored, versus lung adenocarcinoma. 01/04/2018 Right internal jugular PowerPort placement. by Dr. Garcia. December 27, 2017 -Patient agreed to initiate gemcitabine and Abraxane which I think would be reasonable. -FOLFIRINOX, was not favorable due to potential to be quite toxic for him. -Planned for port placement for treatment - 01/10/18 ABRAXANE HELD TODAY PER DR BOWEN DUE TO ELEVATED TBILI LEVEL, GEMCITABINE DOSE REDUCED TO 800 MG/M2 PER VERBAL ORDER FROM DR BOWEN. Treatment December 27, 2017 - Patient agreed to initiate gemcitabine and Abraxane which I think would be reasonable. - FOLFIRINOX, was not favorable due to potential to be quite toxic for him. - Planned for port placement for treatment 01/10/18 ABRAXANE HELD TODAY PER DR BOWEN DUE TO ELEVATED TBILI LEVEL, GEMCITABINE DOSE REDUCED TO 800 MG/M2 PER VERBAL ORDER FROM DR BOWEN. HPI Mr. Kumar is a 72 year old male who has Stage IV pancreatic adenocarcinoma. Patient is seen here at the cancer center today accompany by his , after recent hospitalization [facility]. Patient is AOX3, hemodynamically stable afebrile, oxygen dependent (1-2L/min) sats at 95%. Patient is sitting in a wheelchair. Besides extensive fatigue he reports feeling much better than when he came to the ER on 01/23/18. patient has PMH of Parkinson, Depression,Arthritis. Reported history of skin cancers of the face. Primary care Physician Routine labs performed at that time had revealed significant liver function test abnormalities. For this reason, he was sent for a CT scan of the abdomen and pelvis. This was performed on November [address] scan unfortunately revealed a large mass involving the distal body and tail of the pancreas, as well as numerous hepatic metastases and a 2.7 cm hypoattenuating left adrenal mass. There was also a probable splenic metastasis. There were numerous small hypoattenuating lesions throughout the kidneys, thought potentially to represent cysts, but were too small to characterize. There was an ill-defined periaortic mass measuring 2 x 1.8 x 2.7 cm, thought likely to represent a metastatic lymph node, as well as a 1.8 x 1.4 x 1.9 cm portacaval lymph node that was also thought to be likely a metastatic lymph node. The patient has been informed of the findings on the CT scan, and he was referred to the cancer center for further workup. Living Conditions Lives with his . Laboratory Please see true[x] Media Allergies & Medications Allergies: Coded Allergies: No Known Drug Allergies (Verified , 01/23/18) Home Meds Active Scripts Edoxaban Tosylate (Savaysa) 60 Mg Tablet, 1 TAB PO QPM, #30 TAB Prov:JIGAR MOREL MD 01/25/18 Reported Medications Carbidopa/Levodopa (SINEMET 25-100 MG TABLET) 1 Each Tablet, 2 EACH PO TID 01/23/18 Gabapentin (GABAPENTIN) 300 Mg Capsule, 600 MG PO HS, CAPSULE 01/23/18 Gabapentin (GABAPENTIN) 300 Mg Capsule, 300 MG PO BIDBL, CAPSULE 01/23/18 Zolpidem Tartrate (AMBIEN) 10 Mg Tablet, 1 TAB PO QHS, TAB 12/28/17 Lorazepam (LORAZEPAM) 0.5 Mg Tablet, 1 MG PO BID 12/07/17 Memantine Hcl 10 Mg Tab (NAMENDA 10 MG TAB) 10 Mg Tablet, 10 MG PO BID, TAB 12/07/17 Hypromellose (NATURAL BALANCE TEARS) 15 Ml Drop, 15 ML OD Y for DRY EYES, DROP 02/10/15 Multivits,Th W-Fe,Other Min (THERA-M) 1 Each Tablet, 1 EACH PO DAILY 02/10/15 Lamotrigine (Lamictal) 100 Mg Tab, 300 MG PO QHS, 0 Refills 02/23/09 Discontinued Reported Medications Carbidopa/Levodopa (CARBIDOPA-LEVO 25-100 MG ODT) 1 Each Tab.rapdis, 2 EACH PO unknown TID @ 0730 1130 1630 12/07/14 Discontinued Scripts Tramadol Hcl (TRAMADOL HCL) 50 Mg Tablet, 1-2 TAB PO Q4H Y for PAIN, #20 TAB 0 Refills Prov:RADHA GIFFORD MD 12/29/17 Docusate Sodium (COLACE) 100 Mg Capsule, 1 CAP PO BID, #30 CAP 0 Refills TAKE WITH A FULL GLASS OF WATER Prov:RADHA GIFFORD MD 12/29/17 Constitution: Positive for Appetite/Weight Change, Positive for Other HEENT: No EARS: Tinnitus, No NOSE: Nasal Discharge, No THROAT: Sore Throat, No EYES: Dipolpia, No EARS: Hearing Problems, No NOSE: Epistaxis, No THROAT: Mouth Ulcers, No EYES: Vision Change, No OTHER Respiratory: No Cough, No Expectoration, No Hemoptysis, No Shortness of Breath , No OTHER Cardiovascular: No Chest Pain, No Orthopnea, No Edema, No Palpitations, No OTHER Gastrointestinal: Abdominal Pain Gentiourinary: No Hematuria, No Dysuria, No Nocturia, No Other Musculoskeletal: No Muscle Pain, No Joint Pain, No Bone Pain, No Other Hematological: Bruising, Fatigue Skin: Skin Rash Psychiatric: Anxiety, Depression Vital Signs Temperature: 96.6 Pulse: 87 BP Systolic: 108 BP Diastolic: 57 Respiratory Rate: 16 O2 SAT: 94 O2 Delivery: Height (feet) Height (inches) 68.00 Weight lb: 160 Weight oz: Weight Kg (Suleman): Pain: 0 General: Looks Stable HEENT: HEAD:Atraumatic Lungs: Clear to Auscultation Heart: Regular Rate and Rhythm, No Gallops, No Murmurs, No Clicks, No Rubs, No Other Extremities: No Cyanosis, No Clubbing, No Edema, No Other Lymphatics: No Peripheral Lymphadenopathy, No Other Psychiatric: Mood appears normal Skin: Mild Errythema Breast: No Masses Assessment 1. Stage IV pancreatic adenocarcinoma. proven by Ct guided liver biopsy on 2017. I had a good visit with Mr. Kumar and his spouse today. We spent time discussing his desire to continue chemotherapy treatment. We moved on to discuss Goals of care, as previously discussed with Dr. Bowen. which will be palliative in nature. I informed patient and spouse that we will follow up with his appointment next week, and based on clinical presentation. dr. Bowen will recommend as to the dose and frequency of the next chemotherapy treatment. -He would also have the option of considering gemcitabine monotherapy, or best supportive care. 2. DVT B/L (deep venous thrombosis) during during recent hospitalization 01/23/18 Ultrasound venogram revealed bilateral lower extremity clot. He was started on treatment as above. DVT . Discharged home with Edoxaban 60mg PO . for which extensive education of possible side effects, bleeding precautions and when to contact us teaching provided to patient and as well as written material, and all questions answered. Plan His total bilirubin has been elevated on the past several evaluations. Dr. Bowen recommended further evaluation of his biliary system to see if there was any evidence of obstruction that may require ERCP/stent placement. US of the liver was performed and did not show obstruction of the common bile duct. There was evidence of intrahepatic duct obstruction. -Multidisciplinary review -Recommend MRCP -Labs next encounter and Resume Treatment dose adjusted chemotherapy treatment - Continue Edoxaban 60mg PO daily TIME SPENT: 45 minutes >50% incudes but not limited to discussion, counselling and co-ordination~ of care. Discussion with other health care providers, record review, review of lab work, diagnostic tests. Plan discussed extensively with patient, and spouse. All the questions answered today. Thank you for the opportunity to be involved in the care of Nicola Kumar. Copies to: JASON BOWEN MD, SARA FNP-C, ONC Jan 30, 2018 17:55
[~2018-01-31] VITALS: Ht 172.7 cm; Wt 71.2 kg
[~2018-01-31 09:30] MED LIST changes: +ALTEPLASE RECOMB 2 MG VIAL IVP PRN; +DEXTROSE 5%(*) 100 ML BAG 100 ML IVPB PRN; +EDOX60TA PO; +FLEXIBLE CONTAINER IV ONE; +GEMCITABINE IVPB ONE; +NS 0.9% IVPB ONE; +NS(*) 0.9% 100 ML BAG 100 ML IVPB PRN; +WATER FOR INJ,STERILE 20 ML IVP PRN; +[UNRECOGNIZED DRUG - OTHER] IV ONE; +[UNRECOGNIZED DRUG - OTHER] IVPB ONE
[2018-01-31 10:27] VITALS: BP 107/70
[2018-01-31] MEDS: LIDOCAINE/SOD BICARB 8.4% SYR ID PRN (10:41)
[2018-01-31] MEDS: NS(*) 0.9% 500 ML BAG 500 ML IV PRN ×2 (10:41→13:40)
[2018-01-31] MEDS: PALONOSETRON 0.25 MG/5 ML VIAL IVP PRN (13:14)
[2018-01-31] MEDS: DEXAMETHASONE SOD PHOS 10MG/ML IVP PRN (13:14)
[2018-01-31] MEDS ORDERED: [UNRECOGNIZED DRUG - OTHER] IVPB ONE (13:40)
[2018-01-31] MEDS ORDERED: GEMCITABINE IVPB ONE (13:40)
[2018-01-31] MEDS: HEPARIN FLSH (PORT) 500 UN/5ML IVP PRN (15:24)
--- NOTE | 2018-01-31 16:46 | Medical Nutrition Therapy ---
Nutrition Monitoring & Eval Nutritional Goals Comment: Patient states he is drinking at least one Ensure/day, encouraged him to try 2 Ensure/day if his PO intake is fair. Nutrition Follow-Up: Taking Snack Supplement (patient states he is drinking 1 Ensure/day ), Fair Intake Nutrition Monitoring: Monitoring nutrition impact symptoms, no complaints of Nausea/Vomiting, eating normal food but less than normal amount, managing constipation with Metamucil, states he is doing little activity, spends most time in chair. Patient reports weight 156 lbs. Pt has lost 8 lb in one month. RD Patient Assessment Time: 15 minutes (less than 15 min) RD Assessment Type: RD Re-Assessment (assessed nutrition impact symptoms ) Patient Nutrition Acuity: 2-Moderate Nutritional Comment: spent less than 15 min with patient - MNT for cancer treatment JUAN ZHANG RDN, AMINA Jan 31, 2018 16:45
--- NOTE | 2018-01-31 17:39 | Oncology Progress Note ---
History of Present Illness Evaluation Date: Jan 31, 2018 Evaluation Time: 11:45 Primary Care Provider Oncology Doctor: Jason Bowen MD Accompanied by and Son Last seen by Dr. Bowen on 01/24/2018 inpatient Round. Chief Complaint Chemotherapy Treatment Oncology History December 14, 2017 Stage IV pancreatic adenocarcinoma. December 14, 2017: CT-guided biopsy of a liver lesion for this confirmation. From liver biopsy performed on Adenocarcinoma, moderately differentiated, consistent with pancreatobiliary adenocarcinoma which is favored, versus lung adenocarcinoma. 01/04/2018 Right internal jugular PowerPort placement. by Dr. Garcia. December 27, 2017 -Patient agreed to initiate gemcitabine and Abraxane which I think would be reasonable. -FOLFIRINOX, was not favorable due to potential to be quite toxic for him. -Planned for port placement for treatment - 01/10/18 ABRAXANE HELD TODAY PER DR BOWEN DUE TO ELEVATED TBILI LEVEL, GEMCITABINE DOSE REDUCED TO 800 MG/M2 PER VERBAL ORDER FROM DR BOWEN. Treatment December 27, 2017 - Patient agreed to initiate gemcitabine and Abraxane which I think would be reasonable. - FOLFIRINOX, was not favorable due to potential to be quite toxic for him. - Planned for port placement for treatment Treatment December 27, 2017 - Patient agreed to initiate gemcitabine and Abraxane which I think would be reasonable. - FOLFIRINOX, was not favorable due to potential to be quite toxic for him. - Planned for port placement for treatment 01/10/18 ABRAXANE HELD TODAY PER DR BOWEN DUE TO ELEVATED TBILI LEVEL, GEMCITABINE DOSE REDUCED TO 800 MG/M2 PER VERBAL ORDER FROM DR BOWEN. 01/2018 Edoxaban for B/L DVT patient was treated inpatient with anticoagulant and discharged home with PO Edoxaban 01/31/2018 Monotherapy Gemcitabine 800mg/m2 resumed today HPI Mr. Kumar is a 72 year old male who has Stage IV pancreatic adenocarcinoma. Patient is seen here at the cancer center today accompany by his and son, after recent hospitalization for B/L DVT from [facility]. Patient is AOX3, hemodynamically stable afebrile, oxygen dependent (1-2L/min) sats at 95%. Patient is sitting in the infusion clinic. Besides extensive fatigue he reports feeling much better than his last visit on 01/25/18. Patient has PMH of Parkinson, Depression, Arthritis. Reported history of skin cancers of the face. Patient and family are here today to discuss whether he is to continue with chemotherapy treatment, or to go to [place] for an MRCP as recommended by Multidisciplinary review, given elevated Bili with chemo treatment. Patient along with his and son, expressed to continue with chemotherapy treatment and decline MRCP at the present time. "I do not want to go down do more procedures, I am terminal, I want the chemo." Primary care Physician Routine labs performed at that time had revealed significant liver function test abnormalities. For this reason, he was sent for a CT scan of the abdomen and pelvis. This was performed on November [address] scan unfortunately revealed a large mass involving the distal body and tail of the pancreas, as well as numerous hepatic metastases and a 2.7 cm hypoattenuating left adrenal mass. There was also a probable splenic metastasis. There were numerous small hypoattenuating lesions throughout the kidneys, thought potentially to represent cysts, but were too small to characterize. There was an ill-defined periaortic mass measuring 2 x 1.8 x 2.7 cm, thought likely to represent a metastatic lymph node, as well as a 1.8 x 1.4 x 1.9 cm portacaval lymph node that was also thought to be likely a metastatic lymph node. The patient has been informed of the findings on the CT scan, and he was referred to the cancer center for further workup. Living Conditions Lives with , who is the POA. Laboratory SEE Pulsity T. BILI today is 4.0; Platelets 273 Radiology SEE Pulsity Allergies & Medications Allergies: Coded Allergies: No Known Drug Allergies (Verified , 01/23/18) Home Meds Active Scripts Edoxaban Tosylate (Savaysa) 60 Mg Tablet, 1 TAB PO QPM, #30 TAB Prov:JIGAR MOREL MD 01/25/18 Reported Medications Carbidopa/Levodopa (SINEMET 25-100 MG TABLET) 1 Each Tablet, 2 EACH PO TID 01/23/18 Gabapentin (GABAPENTIN) 300 Mg Capsule, 600 MG PO HS, CAPSULE 01/23/18 Gabapentin (GABAPENTIN) 300 Mg Capsule, 300 MG PO BIDBL, CAPSULE 01/23/18 Zolpidem Tartrate (AMBIEN) 10 Mg Tablet, 1 TAB PO QHS, TAB 12/28/17 Lorazepam (LORAZEPAM) 0.5 Mg Tablet, 1 MG PO BID 12/07/17 Memantine Hcl 10 Mg Tab (NAMENDA 10 MG TAB) 10 Mg Tablet, 10 MG PO BID, TAB 12/07/17 Multivits,Th W-Fe,Other Min (THERA-M) 1 Each Tablet, 1 EACH PO DAILY 02/10/15 Lamotrigine (Lamictal) 100 Mg Tab, 300 MG PO QHS, 0 Refills 02/23/09 Discontinued Reported Medications Hypromellose (NATURAL BALANCE TEARS) 15 Ml Drop, 15 ML OD Y for DRY EYES, DROP 02/10/15 Constitution: Positive for Appetite/Weight Change, Positive for Other HEENT: No EARS: Tinnitus, No NOSE: Nasal Discharge, No THROAT: Sore Throat, No EYES: Dipolpia, No EARS: Hearing Problems, No NOSE: Epistaxis, No THROAT: Mouth Ulcers, No EYES: Vision Change, No OTHER Respiratory: No Cough, No Expectoration, No Hemoptysis, No Shortness of Breath , No OTHER Cardiovascular: No Chest Pain, No Orthopnea, No Edema, No Palpitations, No OTHER Gastrointestinal: Abdominal Pain Gentiourinary: No Hematuria, No Dysuria, No Nocturia, No Other Musculoskeletal: No Muscle Pain, No Joint Pain, No Bone Pain, No Other Hematological: Bruising, Fatigue Skin: Skin Rash Psychiatric: Anxiety, Depression Vital Signs Temperature: 97.3 Pulse: 83 BP Systolic: 107 BP Diastolic: 70 Respiratory Rate: 16 O2 SAT: 98 O2 Delivery: Height (feet) Height (inches) 68.00 Weight lb: 160 Weight oz: Weight Kg (Suleman): Pain: 0 General: Looks Stable HEENT: HEAD:Atraumatic Lungs: Clear to Auscultation Heart: Regular Rate and Rhythm, No Gallops, No Murmurs, No Clicks, No Rubs, No Other Extremities: No Cyanosis, No Clubbing, No Edema, No Other Lymphatics: No Peripheral Lymphadenopathy, No Other Psychiatric: Mood appears normal Skin: Mild Errythema Breast: No Masses Assessment Mr. Kumar is a 72 year old male who has Stage IV pancreatic adenocarcinoma. Patient is seen here at the cancer center today accompany by his and son, after recent hospitalization for B/L DVT from [facility]. Patient is AOX3, hemodynamically stable afebrile, oxygen dependent (1-2L/min) sats at 95%. Patient is sitting in the infusion clinic. Besides extensive fatigue he reports feeling much better than his last visit on 01/25/18. He appears ill, and dehydrated, IV hydration in progress. Patient and family are here today to further discuss whether he is to continue with chemotherapy treatment, or to go to [place] for an MRCP as recommended by Multidisciplinary review, given elevated Bili with chemo treatment. Patient along with his and son, expressed to continue with chemotherapy treatment and decline MRCP at the present time. "I do not want to go down do more procedures, I am terminal, I want the chemo." Patient has PMH of Parkinson, Depression, Arthritis. Reported history of skin cancers of the face. 1. Stage IV pancreatic adenocarcinoma. Proven by Ct guided liver biopsy on 2017. I had a good visit with Mr. Kumar and his spouse today. We spent time discussing his desire to continue chemotherapy treatment. We moved on to discuss Goals of care, as previously discussed with Dr. Bowen. Which will be palliative in nature. I informed patient and spouse that we will follow up with his appointment next week, and based on clinical presentation. dr. Bowen will recommend as to the dose and frequency of the next chemotherapy treatment. -He would also have the option of considering gemcitabine monotherapy, or best supportive care. 2. DVT B/L (deep venous thrombosis) During recent hospitalization 01/23/18 Ultrasound venogram revealed bilateral lower extremity clot. He was started on treatment as above. DVT . Discharged home with Edoxaban 60mg PO . for which extensive education of possible side effects, bleeding precautions and when to contact us teaching provided to patient and as well as written material, and all questions answered. CHRONIC Altered mental status, Parkinson, Depression, Arthritis: on medical treatment Plan Tbili 01/31/18 is 4.0 Platelet 273 His total bilirubin has been elevated on the past several evaluations. Dr. Bowen recommended further evaluation of his biliary system to see if there was any evidence of obstruction that may require ERCP/stent placement. on 01/2018 US of the liver was performed and did not show obstruction of the common bile duct. There was evidence of intrahepatic duct obstruction. -GEM Monotherapy Chemo gemcitabine at 800mg/m2 as long as is safe -Anticipated pancytopenia; we will monitor CBC,CMP, - Supportive care, comfort measures: monitor and encouraged PO intake solid and hydration status - Pain management, psychosocial support, provide antiemetics PRN, - MRCP per Multidisciplinary review recommendation may need to be implemented - Continue Edoxaban 60mg PO daily for DVT ppfx. TIME SPENT: 40 minutes >35minutes incudes but not limited to discussion, counselling and co-ordination~ of care. Discussion with other health care providers, record review, review of lab work, diagnostic tests. Plan discussed extensively with patient, spouse, and son. All the questions answered today. Thank you for the opportunity to be involved in the care of Nicola Kumar. Billing Level: Return visit high complexity Copies to: JASON BOWEN MD, SARA FNP-C, ONC Jan 31, 2018 17:39
--- NOTE | 2018-02-06 19:06 | CONSULTATION ---
EVENT DATE: January 24, 2018 REASON FOR HOSPITAL VISIT 1. Metastatic pancreatic cancer. 2. Pulmonary emboli. CHIEF COMPLAINT Fatigue. INTERIM HISTORY [place]. [place] [facility] [place]'s visit takes place at bedside. We are accompanied by MARTIN Montilla, as well as the patient's . The patient was recently admitted with pulmonary emboli, and he has been appropriately anticoagulated here. He was recently transitioned to Xarelto. He was also noted to have hyperbilirubinemia on recent liver function tests. His hyperbilirubinemia has worsened to the mid 6 range. He has been mildly jaundiced and icteric. He reports that he is otherwise fairly comfortable while at rest. He had hoped to be discharged soon, but he has not had any imaging of his abdomen. Chemotherapy to date has been challenging. He received his initial gemcitabine and Abraxane, but his day 8 gemcitabine had to be delayed due to hyperbilirubinemia, and he did receive day 15. He was subsequently hospitalized. PHYSICAL EXAMINATION VITAL SIGNS: Stable, and the patient is afebrile. GENERAL: Patient is alert and oriented times three, in no apparent distress, lying on the hospital bed. He is thin, and he appears chronically ill. He is in good spirits and quite interactive. HEENT: Slightly icteric sclerae. No significant oropharyngeal lesions. LUNGS: Clear to auscultation bilaterally. HEART: Regular rate and rhythm. ABDOMEN: Soft, nontender, nondistended. Active bowel sounds are present. NEUROLOGIC: Not tested today. LABORATORY STUDIES Reviewed per the [facility] record. ASSESSMENT AND RECOMMENDATIONS 1. Venous thromboemboli. I had a good visit with Patrick and his today about his current predicament with thrombosis in the setting of metastatic pancreatic cancer. He was recently started on Xarelto, and this is not an unreasonable choice. We did discuss that ideally we tend to use Lovenox for patients with incurable cancer, and the data is somewhat lacking for the novel oral anticoagulants. That said, a July 2017 [place] Journal of Medicine article showed that edoxaban as an oral agent is not inferior to dalteparin. This would certainly be a reasonable option for him. He will give this some thought. We discussed that the biggest risk of anticoagulation is certainly bleeding, and that with his parkinsonism, especially keeping in mind his recent fall, his risk for traumatic bleeding is nominal. I do think he should follow up in the Cancer Center with [facility] in the next few days to make sure that tentative transition from Lovenox to edoxaban is complete. Hopefully, finances will not be an issue in this regard. 2. Metastatic pancreatic adenocarcinoma. Patrick has had a difficult start to his chemotherapy. His hyperbilirubinemia prevented him from getting day 8, although he did get day 15. With his hyperbilirubinemia, his Abraxane will need to be held. That say, Patrick is not particularly sure if he wants to continue with chemotherapy. For the time being, it will be on hold. I will plan to see him back during my [place] [facility] [place] The patient and his had several additional questions for me today, and I believe I answered all their questions to their satisfaction. PREMD
== END 2018-02-14 07:41 | disposition home or self-care (01) ==
LOC: ONC 09:30
PROVIDERS: ATTEND Internal Medicine Medical Oncology
DX: Z51.11 Encounter for antineoplastic chemotherapy (principal); C25.9 Malignant neoplasm of pancreas, unspecified; K86.89 Other specified diseases of pancreas; G20 Parkinson's disease; R53.83 Other fatigue
CPT/HCPCS: 36591; 82378; 85025; 85027; 85610; 85730; 86301; 96361; 96375; 96413; 96417; G0463; J1100; J1642; J2469; J7040; J7050; J9201; J9264; 82040; 82247; 82310; 82374; 82435; 82565; 82947; 84075; 84132; 84155; 84295; 84450; 84460; 84520; 99202; 99212